=== PATIENT | female | born 1965 | race Caucasian/White ===

== ENCOUNTER 2020-06-16 06:27 | Day surgery (SDC) | payer OTHER ==
[2020-06-16] MEDS ORDERED: Midazolam 1 MG/ML 2 ML SDV IV ONE ×3 (06:28→07:30)
[2020-06-16] MEDS ORDERED: fentaNYL 100 MCG/2 ML SDV IV ONE ×3 (06:28→07:29)
[2020-06-16] MEDS ORDERED: Dextrose 5%-0.45% NaCl 1,000 ML IV SCH (06:55)
[2020-06-16] MEDS ORDERED: fentaNYL 100 MCG/2 ML SDV ONE (07:09)
[2020-06-16] MEDS ORDERED: Midazolam 1 MG/ML 2 ML SDV ONE (07:09)
--- NOTE | 2020-06-16 08:45 | OR ---
DATE: 06/16/2020 PROCEDURE: Esophagogastroduodenoscopy and multiple pinch biopsies. INSTRUMENT USED: [id number]-[id number] Olympus video panendoscope. PREMEDICATIONS: No oral or topical anesthesia used. Fentanyl 100 mcg intravenous, Versed 2 mg intravenous, nasal O2 cannula. The procedure was done under pulse oximetry, BP recording, and gravity prospecting observer helper. INDICATION: The patient with multiple illnesses, on numerous medications, having persistent upper abdominal pain, unexplained, and not responsive to medical measures, on acid suppressant. Esophagogastroduodenoscopy is performed for detection of any active erosive lesions. Weiner esophagus and/or malignancy also under consideration. H pylori status to be determined. Small bowel biopsies to be obtained for any evidence of celiac disease. Endoscopic hemostasis therapy if needed. DESCRIPTION OF PROCEDURE: The scope was passed with ease. Adequate visualization of the esophagus was made from proximal to distal areas. No upper esophageal lesions identified. No distal esophageal stricture. No uphill or downhill esophageal varices. No Hanna-Lew tear. No esophageal polyp or tumor mass identified. No evidence of erosive esophagitis by Lynn criteria. Z-line was seen at around 40 cm distal to the oral verge. Configuration consistent with grade 1 by ZAP classification. No proximal gastric varices noted. Gastric fundus examination by retroflexion showed no polypoid lesions. No gastric ulcer, malignant mass, or vascular ectasia identified. Duodenal bulb showed no ulcer. Visualized second part of the duodenum was unremarkable. Multiple pinch biopsies, 4 in number, were taken from different areas of the second part of the duodenum. Tissues were also obtained from the duodenal bulb at 9 and 12 o'clock positions and sent for any histopathologic evidence of celiac disease. Multiple pinch biopsies were also obtained from the gastric antrum and proximal body and sent for pyloric test for H pylori and histopathology. No bleeding was noted from any of the visualized areas at the completion of examination. Photographs were taken of the duodenal bulb, gastric antrum, fundus, and distal esophagus. IMPRESSION: Normal study. The patient tolerated the procedure well. [facility] /[id number]
[2020-06-16 09:54] VITALS: BP 122/64; PULSE 57
== END 2020-06-16 09:44 | disposition home or self-care (01) ==
LOC: DL.ENDO 06:27
PROVIDERS: ATTEND Internal Medicine Gastroenterology
DX: I78.1 Nevus, non-neoplastic (principal); K31.9 Disease of stomach and duodenum, unspecified; E66.09 Other obesity due to excess calories; I10 Essential (primary) hypertension; E78.5 Hyperlipidemia, unspecified; F41.1 Generalized anxiety disorder; E11.9 Type 2 diabetes mellitus without complications; F32.9 Major depressive disorder, single episode, unspecified; K21.9 Gastro-esophageal reflux disease without esophagitis; K58.9 Irritable bowel syndrome, unspecified; K75.81 Nonalcoholic steatohepatitis (NASH); K74.0 Hepatic fibrosis; Z79.899 Other long term (current) drug therapy; Z68.29 Body mass index [BMI] 29.0-29.9, adult
CPT/HCPCS: 43239; 87077; J2250; J3010; J7042

== ENCOUNTER 2021-01-02 05:35 | Day surgery (SDC) | payer OTHER ==
[~2021-01-02 05:35] MED LIST: Dextrose 5%-0.45% NaCl 1,000 ML IV SCH; Sodium Chloride 0.9% 10 ML Syringe FLUSH PRN
[2021-01-02] MEDS ORDERED: Midazolam 1 MG/ML 2 ML SDV IV ONE ×8 (05:36→06:52)
[2021-01-02] MEDS ORDERED: fentaNYL 100 MCG/2 ML SDV IV ONE ×7 (05:36→06:44)
[2021-01-02] MEDS ORDERED: Midazolam 1 MG/ML 2 ML SDV ONE (05:59)
[2021-01-02] MEDS ORDERED: fentaNYL 100 MCG/2 ML SDV ONE (05:59)
--- NOTE | 2021-01-02 07:27 | OR ---
DATE: 01/02/2021 PROCEDURE: Total colonoscopy. INSTRUMENT USED: [id number]-[id number] Olympus video colonoscope. PREMEDICATIONS: Fentanyl 200 mcg intravenous, Versed 5 mg intravenous. Nasal O2 cannula. The procedure was done under pulse oximetry, BP recording, and monitor car operator. INDICATION: The patient with persistent abdominal pain, unexplained and not responsive to medical measures. Previous inadequate colonoscopy due to the presence of large amount of fecal material. Colonoscopic examination is done for detection of any polypoid lesions and removal, endoscopic hemostasis therapy if needed. DESCRIPTION OF PROCEDURE: Initial rectal exam was unremarkable. Rigid anoscopy showed small internal hemorrhoids without bleeding from them. The colonoscope was passed with relative ease up to the ileocecal area. Photographs were taken of the normal-appearing cecum identified by double-bulged ileocecal folds and appendiceal orifice. No bleeding was noted from any of the visualized areas at the commencement of the examination. The bowel preparation was found to be adequate, [place] scale 2 in all the regions, total score 6. No stricture. No vascular ectasia. No large isolated ulcerations seen. No evidence of diffuse inflammatory bowel disease in the form of friability, contact bleeding, or ulcerations. No polyp or tumor mass identified. Probing the proximal sides of folds and flexures using adequate distention and clearing up the stool material, withdrawal of the scope was made, cecum to rectum time over 6 minutes. No bleeding was noted from any of the visualized areas at the completion of examination. IMPRESSION: Internal hemorrhoids. The patient tolerated the procedure well. [facility] /[id number]
[2021-01-02 11:01] VITALS: BP 128/66; PULSE 58
== END 2021-01-02 09:03 | disposition home or self-care (01) ==
LOC: DL.ENDO 05:35
PROVIDERS: ATTEND Internal Medicine Gastroenterology
DX: K64.8 Other hemorrhoids (principal); K21.9 Gastro-esophageal reflux disease without esophagitis; I10 Essential (primary) hypertension; E78.5 Hyperlipidemia, unspecified; E11.9 Type 2 diabetes mellitus without complications; E66.09 Other obesity due to excess calories; Z68.29 Body mass index [BMI] 29.0-29.9, adult; Z98.890 Other specified postprocedural states
CPT/HCPCS: 45378; J2250; J3010; J7042

== ENCOUNTER 2021-06-20 22:58 | Inpatient (IN) | payer OTHER ==
[2021-06-20] MEDS ORDERED: Metoclopramide 10 MG/2 ML SDV IVPUSH ONE (23:16)
[2021-06-20] MEDS ORDERED: HYDROmorphone 1 MG/ML Syringe IVPUSH ONE (23:17)
--- NOTE | 2021-06-20 23:24 | EDM.PDOC ---
ED HPI GENERAL MEDICAL PROBLEM - General Chief Complaint: Abdominal Pain Stated Complaint: AMBULANCE Time Seen by Provider: 06/20/21 23:18 Source of Information: Reports: Patient, EMS, Old Records, RN, RN Notes Reviewed History Limitations: Reports: No Limitations - History of Present Illness INITIAL COMMENTS - FREE TEXT/NARRATIVE: Marybel is a 55 y/o female with a history of DM II, insulin dependent, who presents to the ED via [facility] with complaints of RUQ pain. The patient reports history of similar episodes over the past several months, and has undergone CT, MRI, EGD, and colonoscopy for evaluation of the pain in the past year. She is s/p cholecystectomy but was noted to have signs of remaining gallbladder on prior CT. She notes her symptoms started at approximately 1500 today with a fever of 101 and nausea; she began to experience vomiting, diarrhea, and RUQ pain at 2000. The patient characterizes her pain as a 6/10, constant ache that radiates into her RLQ. She has taken one dose of Zofran ODT 4mg which offered her no alleviation in symptoms. The patient states she feels weak from one bout of emesis and two bouts of diarrhea. Her last meal was this past evening. Right Upper Abdomen Pain Score (Numeric/FACES): 6 - Related Data Allergies Allergy/AdvReac Type Severity Reaction Status Date / Time glyburide AdvReac Intermediate Confusion Verified 06/20/21 23:08 Home Meds: Home Meds Aspirin [Halfprin] 81 mg PO DAILY 11/01/13 [History] Insulin NPH/Insulin Reg,Human [Novolin 70-30] 25 units SUBCUT BEDTIME 11/01/13 [History] Sertraline HCl 50 mg PO DAILY 11/01/13 [History] metFORMIN [Glucophage] 1,000 mg PO BID 11/01/13 [History] ramipriL [Altace] 15 mg PO DAILY 11/01/13 [History] Cetirizine [ZyrTEC] 10 mg PO DAILY 06/15/20 [History] Cholecalciferol (Vitamin D3) [Vitamin D3] 2,000 units PO DAILY 06/15/20 [History] Dapagliflozin Propanediol [Farxiga] 5 mg PO DAILY 06/15/20 [History] Magnesium Glycinate [Magnesium Bisglycinate Chelate] 200 mg PO DAILY 09/16/20 [History] Ascorbic Acid [Vitamin C] 100 mg PO DAILY 10/20/20 [History] Insuln Asp Prot/Insulin Aspart [NovoLOG Mix 70-30] 40 - 45 units SQ BID 10/20/20 [History] Rosuvastatin Calcium 20 mg PO BEDTIME 10/20/20 [History] Famotidine 20 mg PO BID 06/20/21 [History] Ondansetron [Zofran ODT] 4 mg PO Q12H PRN 06/20/21 [History] Past Medical History HEENT History: Reports: Impaired Vision, Other (See Below) Other HEENT History: WEARS GLASSES Cardiovascular History: Reports: High Cholesterol, Hypertension Respiratory History: Reports: None Gastrointestinal History: Reports: Colon Polyp, GERD, Irritable Bowel Syndrome, Other (See Below) Other Gastrointestinal History: NONALCOHOLIC STEATOHEPATITIS WITH FIBROSIS. ABDOMINAL ADHESIONS Genitourinary History: Reports: None QUILL CLEANER History: Reports: Other (See Below) Other QUILL CLEANER History: Hysterectomy Musculoskeletal History: Reports: Arthritis, Back Pain, Chronic, Osteoporosis, Other (See Below) Other Musculoskeletal History: right shoulder Neurological History: Reports: None Psychiatric History: Reports: Anxiety, Depression Endocrine/Metabolic History: Reports: Diabetes, Type II, Obesity/BMI 30+, Osteoporosis, Vitamin D Deficiency Hematologic History: Reports: Blood Transfusion(s) Immunologic History: Reports: None Oncologic (Cancer) History: Reports: None Dermatologic History: Reports: Other (See Below) Other Dermatologic History: HX OF ACTINIC DERMATITIS - Infectious Disease History Infectious Disease History: Reports: Chicken Pox, Hepatitis non A,B,C, Measles, Mumps - Past Surgical History Head Surgeries/Procedures: Reports: None HEENT Surgical History: Reports: Naso-Sinus Surgery, Oral Surgery, Tonsillectomy Cardiovascular Surgical History: Reports: None Respiratory Surgical History: Reports: None GI Surgical History: Reports: Cholecystectomy, Colonoscopy, EGD, Polypectomy Other GI Surgeries/Procedures: Hx of colon polyp. Female Surgical History: Reports: Hysterectomy, Salpingo-Oophorectomy, Tubal Ligation Endocrine Surgical History: Reports: None Neurological Surgical History: Reports: None Musculoskeletal Surgical History: Reports: Other (See Below) Other Musculoskeletal Surgeries/Procedures:: LEFT ELBOW SURGERY, MOVED TENDON Oncologic Surgical History: Reports: None Dermatological Surgical History: Reports: None Social & Family History - Family History Family Medical History: No Pertinent Family History - Tobacco Use Tobacco Use Status *Q: Never Tobacco User - Caffeine Use Caffeine Use: Reports: Coffee, Soda, Tea Other Caffeine Use: COFFEE 12OZ DAILY. TEA 30-40 OZ - Recreational Drug Use Recreational Drug Use: No - Living Situation & Occupation Living situation: Reports: Occupation: Employed ED ROS GENERAL - Review of Systems Review Of Systems: Comprehensive ROS is negative, except as noted in HPI. ED EXAM, GI/ABD - Physical Exam Exam: See Below Exam Limited By: No Limitations General Appearance: Alert, Mild Distress (Pain to RUQ), Obese. No: Active Emesis Eyes: Bilateral: Normal Appearance, EOMI Ears: Normal External Exam, Hearing Grossly Normal Nose: Normal Inspection, Normal Mucosa, No Blood Throat/Mouth: Normal Inspection, Normal Oropharynx, Normal Voice, No Airway Compromise Head: Atraumatic, Normocephalic Neck: Normal Inspection, Supple, Non-Tender, Full Range of Motion Respiratory/Chest: No Respiratory Distress, Lungs Clear, Normal Breath Sounds, No Accessory Muscle Use, Chest Non-Tender Cardiovascular: Normal Peripheral Pulses, Regular Rate, Rhythm, No Edema, No Gallop, No JVD, No Murmur, No Rub GI/Abdominal Exam: Soft, No Distention, No Abnormal Bruit, No Mass, Pelvis Stable, Tender (To palpation of RUQ and RLQ), Abnormal Bowel Sounds (Hyperactive bowel sounds x4) (Female) Exam: Deferred Rectal (Female) Exam: Deferred Back Exam: Normal Inspection, Full Range of Motion Extremities: Normal Inspection, Normal Range of Motion, Non-Tender, No Pedal Edema, Normal Capillary Refill Neurological: Alert, Oriented, CN II-XII Intact, Normal Cognition, Normal Gait, No Motor/Sensory Deficits Psychiatric: Normal Affect, Normal Mood Skin Exam: Warm, Dry, Intact, Normal Color, No Rash. No: Cyanosis, Jaundice, Mottled, Pallor Course - Vital Signs Last Recorded V/S: Last Vital Signs Temp 97.1 F 06/20/21 23:10 Pulse 63 06/20/21 23:10 Resp 20 06/20/21 23:10 BP 135/71 06/20/21 23:10 Pulse Ox 95 06/20/21 23:10 - Orders/Labs/Meds Orders: Active Orders 24 hr Category Date Time Status Gastrointestinal Tube Mgmt [RC] Q8H Care 06/21/21 01:48 Active NG [Nasogastric Orogastric Tube Insertion] [OM.PC] Oth 06/21/21 01:48 Ordered Routine Medication Orders Acetaminophen (Acetaminophen 325 Mg Tab) 650 mg PO Q4H PRN PRN Reason: Pain (Mild 1-3)/fever Dextrose/Water (50% Dextrose In Water 50 Ml Syringe) 50 ml IVPUSH Q15M PRN PRN Reason: Hypoglycemia Enoxaparin Sodium (Enoxaparin 40 Mg/0.4 Ml Syringe) 40 mg SUBCUT DAILY ABHAY Glucagon (Glucagon,Human Recombinant 1 Mg Vial) 1 mg IM Q15M PRN PRN Reason: Hypoglycemia Sodium Chloride (Normal Saline) 1,000 mls @ 100 mls/hr IV ASDIRECTED ABHAY Insulin Human Lispro (Insulin Lispro 100 Units/Ml 3 Ml Vial) 0 unit SUBCUT Q6H ABHAY; Protocol Morphine Sulfate (Morphine 2 Mg/Ml Syringe) 1 mg IVPUSH Q4H PRN PRN Reason: Pain (severe 7-10) Ondansetron HCl (Ondansetron 4 Mg/2 Ml Sdv) 4 mg IVPUSH Q4H PRN PRN Reason: Nausea/Vomiting Senna/Docusate Sodium (Docusate Sodium/Sennosides 50-8.6 Mg Tab) 2 tab PO BID ABHAY Sodium Chloride (Sodium Chloride 0.9% 10 Ml Syringe) 10 ml FLUSH ASDIRECTED PRN PRN Reason: Keep Vein Open Labs: Laboratory Tests 06/20/21 06/20/21 06/20/21 Range/Units 23:18 23:18 23:18 WBC 13.1 H (5.0-10.0) 10^3/uL RBC 4.98 (4.2-5.4) 10^6/uL Hgb 15.0 D (12.0-16.0) g/dL Hct 43.9 (37.0-47.0) % MCV 88.2 (80-100) fL MCH 30.1 (27.0-34.0) pg MCHC 34.2 (33.0-35.0) g/dL Plt Count 255 (150-450) 10^3/uL Neut % (Auto) 68.0 (42.2-75.2) % Lymph % (Auto) 21.5 (20.5-50.1) % [place] % (Auto) 9.4 H (2-8) % Eos % (Auto) 0.9 L (1.0-3.0) % Baso % (Auto) 0.2 (0.0-1.0) % Sodium 137 (136-145) mmol/L Potassium 3.7 (3.5-5.1) mmol/L Chloride 100 (98-107) mmol/L Carbon Dioxide 21 (21-32) mmol/L Anion Gap 19.7 H (7-13) mEq/L BUN 13 (7-18) mg/dL Creatinine 0.83 (0.55-1.02) mg/dL Est Cr Clr Drug Dosing 73.60 mL/min Estimated GFR (MDRD) > 60 BUN/Creatinine Ratio 15.7 (No establ ref range) Glucose 216 H (70-99) mg/dL Lactic Acid 4.8 H* (0.4-2.0) mmol/L Calcium 9.4 (8.5-10.1) mg/dL Magnesium 1.8 (1.8-2.4) mg/dL Total Bilirubin 0.4 (0.2-1.0) mg/dL AST 52 H (15-37) U/L ALT 74 H (14-59) U/L Alkaline Phosphatase 78 (46-116) U/L C-Reactive Protein < 0.2 (0.0-0.9) mg/dL Total Protein 7.3 (6.4-8.2) g/dL Albumin 3.9 (3.4-5.0) g/dL Globulin 3.4 Albumin/Globulin Ratio 1.1 Amylase 26 (25-115) U/L Lipase 125 (73-393) U/L Urine Color (YELLOW) Urine Appearance (CLEAR) Urine pH (5.0-9.0) Ur Specific [place] (1.005-1.030) Urine Protein (NEGATIVE) Urine Glucose (UA) (NEGATIVE) Urine Ketones (NEGATIVE) Urine Occult Blood (NEGATIVE) Urine Nitrite (NEGATIVE) Urine Bilirubin (NEGATIVE) Urine Urobilinogen (0.2-1.0) mg/dL Ur Leukocyte Esterase (NEGATIVE) Urine Opiates Screen (NEGATIVE) Ur Oxycodone Screen (NEGATIVE) Urine Methadone Screen (NEGATIVE) Ur Barbiturates Screen (NEGATIVE) U Tricyclic Antidepress (NEGATIVE) Ur Phencyclidine Scrn (NEGATIVE) Ur Amphetamine Screen (NEGATIVE) U Methamphetamines Scrn (NEGATIVE) Urine MDMA Screen (NEGATIVE) U Benzodiazepines Scrn (NEGATIVE) Urine Cocaine Screen (NEGATIVE) U Marijuana (THC) Screen (NEGATIVE) Ethyl Alcohol < 3 (0) mg/dL Ketones 06/20/21 06/21/21 06/21/21 Range/Units 23:18 00:10 00:10 WBC (5.0-10.0) 10^3/uL RBC (4.2-5.4) 10^6/uL Hgb (12.0-16.0) g/dL Hct (37.0-47.0) % MCV (80-100) fL MCH (27.0-34.0) pg MCHC (33.0-35.0) g/dL Plt Count (150-450) 10^3/uL Neut % (Auto) (42.2-75.2) % Lymph % (Auto) (20.5-50.1) % [place] % (Auto) (2-8) % Eos % (Auto) (1.0-3.0) % Baso % (Auto) (0.0-1.0) % Sodium (136-145) mmol/L Potassium (3.5-5.1) mmol/L Chloride (98-107) mmol/L Carbon Dioxide (21-32) mmol/L Anion Gap (7-13) mEq/L BUN (7-18) mg/dL Creatinine (0.55-1.02) mg/dL Est Cr Clr Drug Dosing mL/min Estimated GFR (MDRD) BUN/Creatinine Ratio (No establ ref range) Glucose (70-99) mg/dL Lactic Acid (0.4-2.0) mmol/L Calcium (8.5-10.1) mg/dL Magnesium (1.8-2.4) mg/dL Total Bilirubin (0.2-1.0) mg/dL AST (15-37) U/L ALT (14-59) U/L Alkaline Phosphatase (46-116) U/L C-Reactive Protein (0.0-0.9) mg/dL Total Protein (6.4-8.2) g/dL Albumin (3.4-5.0) g/dL Globulin Albumin/Globulin Ratio Amylase (25-115) U/L Lipase (73-393) U/L Urine Color Yellow (YELLOW) Urine Appearance Clear (CLEAR) Urine pH 6.0 (5.0-9.0) Ur Specific [place] 1.015 (1.005-1.030) Urine Protein Negative (NEGATIVE) Urine Glucose (UA) >=1000 H (NEGATIVE) Urine Ketones Trace H (NEGATIVE) Urine Occult Blood Negative (NEGATIVE) Urine Nitrite Negative (NEGATIVE) Urine Bilirubin Negative (NEGATIVE) Urine Urobilinogen 0.2 (0.2-1.0) mg/dL Ur Leukocyte Esterase Negative (NEGATIVE) Urine Opiates Screen Positive H (NEGATIVE) Ur Oxycodone Screen Negative (NEGATIVE) Urine Methadone Screen Negative (NEGATIVE) Ur Barbiturates Screen Negative (NEGATIVE) U Tricyclic Antidepress Negative (NEGATIVE) Ur Phencyclidine Scrn Negative (NEGATIVE) Ur Amphetamine Screen Negative (NEGATIVE) U Methamphetamines Scrn Negative (NEGATIVE) Urine MDMA Screen Negative (NEGATIVE) U Benzodiazepines Scrn Negative (NEGATIVE) Urine Cocaine Screen Negative (NEGATIVE) U Marijuana (THC) Screen Negative (NEGATIVE) Ethyl Alcohol (0) mg/dL Ketones Negative 06/21/21 Range/Units 02:29 WBC (5.0-10.0) 10^3/uL RBC (4.2-5.4) 10^6/uL Hgb (12.0-16.0) g/dL Hct (37.0-47.0) % MCV (80-100) fL MCH (27.0-34.0) pg MCHC (33.0-35.0) g/dL Plt Count (150-450) 10^3/uL Neut % (Auto) (42.2-75.2) % Lymph % (Auto) (20.5-50.1) % [place] % (Auto) (2-8) % Eos % (Auto) (1.0-3.0) % Baso % (Auto) (0.0-1.0) % Sodium (136-145) mmol/L Potassium (3.5-5.1) mmol/L Chloride (98-107) mmol/L Carbon Dioxide (21-32) mmol/L Anion Gap (7-13) mEq/L BUN (7-18) mg/dL Creatinine (0.55-1.02) mg/dL Est Cr Clr Drug Dosing mL/min Estimated GFR (MDRD) BUN/Creatinine Ratio (No establ ref range) Glucose (70-99) mg/dL Lactic Acid 3.0 H* (0.4-2.0) mmol/L Calcium (8.5-10.1) mg/dL Magnesium (1.8-2.4) mg/dL Total Bilirubin (0.2-1.0) mg/dL AST (15-37) U/L ALT (14-59) U/L Alkaline Phosphatase (46-116) U/L C-Reactive Protein (0.0-0.9) mg/dL Total Protein (6.4-8.2) g/dL Albumin (3.4-5.0) g/dL Globulin Albumin/Globulin Ratio Amylase (25-115) U/L Lipase (73-393) U/L Urine Color (YELLOW) Urine Appearance (CLEAR) Urine pH (5.0-9.0) Ur Specific [place] (1.005-1.030) Urine Protein (NEGATIVE) Urine Glucose (UA) (NEGATIVE) Urine Ketones (NEGATIVE) Urine Occult Blood (NEGATIVE) Urine Nitrite (NEGATIVE) Urine Bilirubin (NEGATIVE) Urine Urobilinogen (0.2-1.0) mg/dL Ur Leukocyte Esterase (NEGATIVE) Urine Opiates Screen (NEGATIVE) Ur Oxycodone Screen (NEGATIVE) Urine Methadone Screen (NEGATIVE) Ur Barbiturates Screen (NEGATIVE) U Tricyclic Antidepress (NEGATIVE) Ur Phencyclidine Scrn (NEGATIVE) Ur Amphetamine Screen (NEGATIVE) U Methamphetamines Scrn (NEGATIVE) Urine MDMA Screen (NEGATIVE) U Benzodiazepines Scrn (NEGATIVE) Urine Cocaine Screen (NEGATIVE) U Marijuana (THC) Screen (NEGATIVE) Ethyl Alcohol (0) mg/dL Ketones Meds: Medications Generic Name Dose Route Start Last Admin Trade Name Freq PRN Reason Stop Dose Admin Acetaminophen 650 mg 06/21/21 03:10 Acetaminophen 325 Mg Tab PO Q4H PRN Pain (Mild 1-3)/fever Dextrose/Water 50 ml 06/21/21 03:14 50% Dextrose In Water 50 Ml Syringe IVPUSH Q15M PRN Hypoglycemia Enoxaparin Sodium 40 mg 06/21/21 09:00 Enoxaparin 40 Mg/0.4 Ml Syringe SUBCUT DAILY ABHAY Glucagon 1 mg 06/21/21 03:14 Glucagon,Human Recombinant 1 Mg Vial IM Q15M PRN Hypoglycemia Sodium Chloride 1,000 mls @ 100 mls/hr 06/21/21 03:15 Normal Saline IV ASDIRECTED [facility] Insulin Human Lispro 0 unit 06/21/21 03:15 Insulin Lispro 100 Units/Ml 3 Ml Vial SUBCUT Q6H [facility] Protocol Morphine Sulfate 1 mg 06/21/21 03:10 Morphine 2 Mg/Ml Syringe IVPUSH Q4H PRN Pain (severe 7-10) Ondansetron HCl 4 mg 06/21/21 03:10 Ondansetron 4 Mg/2 Ml Sdv IVPUSH Q4H PRN Nausea/Vomiting Senna/Docusate Sodium 2 tab 06/21/21 09:00 Docusate Sodium/Sennosides 50-8.6 Mg Tab PO BID ABHAY Sodium Chloride 10 ml 06/21/21 03:10 Sodium Chloride 0.9% 10 Ml Syringe FLUSH ASDIRECTED PRN Keep Vein Open Discontinued Medications Generic Name Dose Route Start Last Admin Trade Name Freq PRN Reason Stop Dose Admin Acetaminophen 1,000 mg 06/21/21 01:01 06/21/21 01:21 Acetaminophen 500 Mg Tab PO 06/21/21 01:02 1,000 mg ONETIME ONE Administration Hydromorphone HCl 1 mg 06/20/21 23:17 06/20/21 23:27 Hydromorphone 1 Mg/Ml Syringe IVPUSH 06/20/21 23:18 1 mg ONETIME ONE Administration Sodium Chloride 1,000 mls @ 999 mls/hr 06/21/21 00:43 06/21/21 00:47 Normal Saline IV 06/21/21 01:43 999 mls/hr .BOLUS ONE Administration Iopamidol 100 ml 06/20/21 23:50 06/21/21 00:02 Iopamidol 612 Mg/Ml 100 Ml Bottle IVPUSH 06/20/21 23:51 100 ml ONETIME ONE Administration Metoclopramide HCl 10 mg 06/20/21 23:16 06/20/21 23:27 Metoclopramide 10 Mg/2 Ml Sdv IVPUSH 06/20/21 23:17 10 mg ONETIME ONE Administration - Radiology Interpretation Free Text/Narrative:: [facility] Final Radiology Report Call: [phone] assistance Online chat: [email or web address] Name: MARYBEL REYNAGA Age: 55Years F Date: 06/20/2021 SSN: -- : [id number] Study: CT ABDOMEN PELVIS W CONT Requesting Physician: Juli Bernal Images: [id number] Addl Studies: Provided Clinical History: RUQ pain; WBC 13 Contrast: With Contrast Medium: isovue 300 Contrast Amount: 100 mL Contrast Method: Intravenous (IV) Page 1 of 2 PROCEDURE INFORMATION: Exam: CT Abdomen And Pelvis With Contrast Exam date and time: 06/20/2021 11:51 PM Age: 55 years old Clinical indication: Right upper quadrant abdominal pain. Total hysterectomy, partial gallbladder removal, diabetes. TECHNIQUE: Imaging protocol: Computed tomography of the abdomen and pelvis with contrast. Radiation optimization: All CT scans at this facility use at least one of these dose optimization techniques: automated exposure control; mA and/or kV adjustment per patient size (includes targeted exams where dose is matched to clinical indication); or iterative reconstruction. Contrast material: ISOVUE 300; Contrast volume: 100 ml; Contrast route: INTRAVENOUS (IV); COMPARISON: CT Abdomen/Pelvis 02/28/2021 4:04 PM FINDINGS: Lung bases are clear. This the liver remains mildly enlarged and may be fatty infiltrated. Solid abdominal organs are otherwise unremarkable. The gallbladder is nondistended. No radiopaque gallstones or biliary ductal dilatation. A surgical clip is present immediately adjacent to the gallbladder. The stomach is mildly distended with gas, debris, and fluid. A few mildly distended loops of small bowel are present with scattered air-fluid levels present. No abrupt change in small bowel caliber is identified. Liquefied stool is present in the colon which is largely collapsed beyond the level of the splenic flexure. Bowel is otherwise unremarkable. Normal appendix is identified. Mild abdominal aortic atherosclerotic calcification. No abdominal aortic aneurysm or dissection. Few stable periportal lymph nodes are present which measure up to 10 mm diameter. Post hysterectomy. No adnexal mass. The urinary bladder is fluid filled and unremarkable. No free intraperitoneal air or fluid. Osseous structures are intact. Mild degenerative changes involve the spine. IMPRESSION: 1. Mildly distended stomach and few loops of small bowel without suspicion for mechanical obstruction. Question mild ileus. 2. Liquefied colonic stool suggesting diarrheal disease. 3. Mildly enlarged possibly fatty infiltrated liver. Thank you for allowing us to participate in the care of your patient. Dictated and Authenticated by: Avinash Christensen MD 06/21/2021 1:36 AM Central Time ([place] & [place]) - Re-Assessments/Exams Free Text/Narrative Re-Assessment/Exam: 06/21/21 LR 1L bolus continued from EMS. Dilaudid 1mg IVP and Reglan 10mg IVP administered. Patient verbalizes improvement in abdominal pain, but continues to experience nausea. CT abdomen/pelvis obtained. Findings of examination, lab work, and imaging reviewed with patient and . Patient states her pain is much improved, but her nausea and bloating feel worse. Will place NG tube, given possible ileus w/o obstruction via CT. Case discussed with Dr. Noel who kindly accepted patient for referral to observation. Plan of care reviewed with patient and who verbalized understanding and agreement. Departure - Departure Time of Disposition: 02:35 Disposition: Admitted As Inpatient 65 Condition: Fair Clinical Impression: Ileus, Dehydration Hyperglycemia due to type 2 diabetes mellitus Qualifiers: Diabetes mellitus correction insulin use: with watermelon inspector use Qualified Code(s): E11.65 - Type 2 diabetes mellitus with hyperglycemia; Z79.4 - shelter (current) use of insulin Nausea and vomiting Qualifiers: Vomiting type: bilious vomiting Qualified Code(s): R11.14 - Bilious vomiting Diarrhea Qualifiers: Diarrhea type: unspecified type Qualified Code(s): R19.7 - Diarrhea, unspecified - Discharge Information Sepsis Event Note (ED) - Evaluation Sepsis Screening Result: No Definite Risk - Focused Exam Vital Signs: Vital Signs Temp Pulse Resp BP Pulse Ox 06/20/21 23:10 97.1 F 63 20 135/71 95 - My Orders Last 24 Hours: My Active Orders 06/21/21 01:48 Gastrointestinal Tube Mgmt [RC] Q8H NG [Nasogastric Orogastric Tube Insertion] [OM.PC] Routine - Assessment/Plan Last 24 Hours: My Active Orders 06/21/21 01:48 Gastrointestinal Tube Mgmt [RC] Q8H NG [Nasogastric Orogastric Tube Insertion] [OM.PC] Routine
[2021-06-20 23:42] LABS: ANION GAP 19.7 mEq/L (7-13); CHLORIDE,CL 100 mmol/L (98-107); SODIUM,NA 137 mmol/L (136-145)
[2021-06-20] MEDS ORDERED: Iopamidol 612 MG/ML 100 ML Bottle IVPUSH ONE (23:50)
[2021-06-21 00:29] LABS: AMPHETAMINES,URINE NEGATIVE (NEGATIVE); BARBITURATES,URINE NEGATIVE (NEGATIVE); BENZODIAZEPINE,URINE NEGATIVE (NEGATIVE); MDMA (ECSTASY), URINE NEGATIVE (NEGATIVE); METHADONE,URINE NEGATIVE (NEGATIVE); METHAMPHETAMINES,URINE NEGATIVE (NEGATIVE); OPIATES,URINE POSITIVE (NEGATIVE); OXYCODONE,URINE NEGATIVE (NEGATIVE); PHENCYCLIDINE,URINE NEGATIVE (NEGATIVE); TCA,URINE NEGATIVE (NEGATIVE)
[2021-06-21] MEDS ORDERED: Sodium Chloride 0.9% 1,000 ML IV ONE (00:43)
[2021-06-21] MEDS ORDERED: Acetaminophen 500 MG Tab PO ONE (01:01)
--- NOTE | 2021-06-21 01:36 | CT ---
PROCEDURE INFORMATION: Exam: CT Abdomen And Pelvis With Contrast Exam date and time: 06/20/2021 11:51 PM Age: 55 years old Clinical indication: Right upper quadrant abdominal pain. Total hysterectomy, partial gallbladder removal, diabetes. TECHNIQUE: Imaging protocol: Computed tomography of the abdomen and pelvis with contrast. Radiation optimization: All CT scans at this facility use at least one of these dose optimization techniques: automated exposure control; mA and/or kV adjustment per patient size (includes targeted exams where dose is matched to clinical indication); or iterative reconstruction. Contrast material: ISOVUE 300; Contrast volume: 100 ml; Contrast route: INTRAVENOUS (IV); COMPARISON: CT Abdomen/Pelvis 02/28/2021 4:04 PM FINDINGS: Lung bases are clear. This the liver remains mildly enlarged and may be fatty infiltrated. Solid abdominal organs are otherwise unremarkable. The gallbladder is nondistended. No radiopaque gallstones or biliary ductal dilatation. A surgical clip is present immediately adjacent to the gallbladder. The stomach is mildly distended with gas, debris, and fluid. A few mildly distended loops of small bowel are present with scattered air-fluid levels present. No abrupt change in small bowel caliber is identified. Liquefied stool is present in the colon which is largely collapsed beyond the level of the splenic flexure. Bowel is otherwise unremarkable. Normal appendix is identified. Mild abdominal aortic atherosclerotic calcification. No abdominal aortic aneurysm or dissection. Few stable periportal lymph nodes are present which measure up to 10 mm diameter. Post hysterectomy. No adnexal mass. The urinary bladder is fluid filled and unremarkable. No free intraperitoneal air or fluid. Osseous structures are intact. Mild degenerative changes involve the spine. IMPRESSION: 1. Mildly distended stomach and few loops of small bowel without suspicion for mechanical obstruction. Question mild ileus. 2. Liquefied colonic stool suggesting diarrheal disease. 3. Mildly enlarged possibly fatty infiltrated liver.
[2021-06-21] MEDS ORDERED: Benzocaine/Cetylpyridinium/Menthol Lozenge MUCMEM ONE (02:34)
--- NOTE | 2021-06-21 03:00 | CR ---
PROCEDURE INFORMATION: Exam: XR Abdomen Exam date and time: 06/21/2021 2:51 AM Age: 55 years old Clinical indication: Other: Confirm ng/og tube placement TECHNIQUE: Imaging protocol: XR of the abdomen. Views: Frontal supine view of the abdomen. 1 View. COMPARISON: CT Abdomen/Pelvis 06/20/2021 11:51 PM FINDINGS: Naso/orogastric tube is present with tip just below the expected level of the gastroesophageal junction. Visualized bowel gas pattern is within normal limits. Excreted urinary contrast from previous intravenous contrast load is present in the renal collecting systems. IMPRESSION: Naso/orogastric tube in place with tip just below the expected level of the gastroesophageal junction. This could be advanced further into the body of the stomach for optimal placement.
[2021-06-21] MEDS ORDERED: Sodium Chloride 0.9% 10 ML Syringe FLUSH PRN (03:10)
[2021-06-21] MEDS ORDERED: Glucagon,Human Recombinant 1 MG Vial IM PRN (03:14)
[2021-06-21] MEDS ORDERED: 50% Dextrose in Water 50 ML Syringe IVPUSH PRN (03:14)
--- NOTE | 2021-06-21 03:21 | PCM.HP ---
H&P History of Present Illness - General Date of Service: 06/21/21 Admit Problem/Dx: Admission Diagnosis/Problem Admission Diagnosis/Problem Ileus - History of Present Illness Initial Comments - Free Text/Narative: The patient is a 55-year-old female who presents with chief complaint of abdominal pain. She states she started feeling unwell at approximately 3 PM on June 20, 2021. She states at that time she was exhibiting eructations. She states she developed right-sided abdominal pain described as pressure which rated 7 out of 10 at its worst at the time of interview it rates 2 out of 10. She Franck that her last bowel movement was shortly prior before presenting to the emergency department. She indicates that she is been having diarrhea however she denies melena, hematochezia, steatorrhea. She states that she took Tylenol at home for the pain which improved the pain mildly. She states that she has not taken antibiotics in the last 6 months and she denies frequent NSAID use. She admits to onset of rigors, nausea and a couple episodes of emesis. She denies fever, cough, wheeze, or any other constitutional complaints. She presents for further evaluation Right Upper Abdomen Pain Score (Numeric/FACES): 6 - Related Data Allergies/Adverse Reactions: Allergies Allergy/AdvReac Type Severity Reaction Status Date / Time glyburide AdvReac Intermediate Confusion Verified 06/20/21 23:08 Home Medications: Home Meds Aspirin [Halfprin] 81 mg PO DAILY 11/01/13 [History] Insulin NPH/Insulin Reg,Human [Novolin 70-30] 25 units SUBCUT BEDTIME 11/01/13 [History] Sertraline HCl 50 mg PO DAILY 11/01/13 [History] metFORMIN [Glucophage] 1,000 mg PO BID 11/01/13 [History] ramipriL [Altace] 15 mg PO DAILY 11/01/13 [History] Cetirizine [ZyrTEC] 10 mg PO DAILY 06/15/20 [History] Cholecalciferol (Vitamin D3) [Vitamin D3] 2,000 units PO DAILY 06/15/20 [History] Dapagliflozin Propanediol [Farxiga] 5 mg PO DAILY 06/15/20 [History] Magnesium Glycinate [Magnesium Bisglycinate Chelate] 200 mg PO DAILY 09/16/20 [History] Ascorbic Acid [Vitamin C] 100 mg PO DAILY 10/20/20 [History] Insuln Asp Prot/Insulin Aspart [NovoLOG Mix 70-30] 40 - 45 units SQ BID 10/20/20 [History] Rosuvastatin Calcium 20 mg PO BEDTIME 10/20/20 [History] Famotidine 20 mg PO BID 06/20/21 [History] Ondansetron [Zofran ODT] 4 mg PO Q12H PRN 06/20/21 [History] Past Medical History HEENT History: Reports: Impaired Vision, Other (See Below) Other HEENT History: WEARS GLASSES Cardiovascular History: Reports: High Cholesterol, Hypertension Respiratory History: Reports: None Gastrointestinal History: Reports: Colon Polyp, GERD, Irritable Bowel Syndrome, Other (See Below) Other Gastrointestinal History: NONALCOHOLIC STEATOHEPATITIS WITH FIBROSIS. 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: Other (See Below) Other OB/BYN History: Hysterectomy Musculoskeletal History: Reports: Arthritis, Back Pain, Chronic, Osteoporosis, Other (See Below) Other Musculoskeletal History: right shoulder Neurological History: Reports: None Psychiatric History: Reports: Anxiety, Depression Endocrine/Metabolic History: Reports: Diabetes, Type II, Obesity/BMI 30+, Osteoporosis, Vitamin D Deficiency Hematologic History: Reports: Blood Transfusion(s) Immunologic History: Reports: None Oncologic (Cancer) History: Reports: None Dermatologic History: Reports: Other (See Below) Other Dermatologic History: HX OF ACTINIC DERMATITIS - Infectious Disease History Infectious Disease History: Reports: Chicken Pox, Hepatitis non A,B,C, Measles, Mumps - Past Surgical History Head Surgeries/Procedures: Reports: None HEENT Surgical History: Reports: Naso-Sinus Surgery, Oral Surgery, Tonsillectomy Cardiovascular Surgical History: Reports: None Respiratory Surgical History: Reports: None GI Surgical History: Reports: Cholecystectomy, Colonoscopy, EGD, Polypectomy Other GI Surgeries/Procedures: Hx of colon polyp. Female Surgical History: Reports: Hysterectomy, Salpingo-Oophorectomy, Tubal Ligation Endocrine Surgical History: Reports: None Neurological Surgical History: Reports: None Musculoskeletal Surgical History: Reports: Other (See Below) Other Musculoskeletal Surgeries/Procedures:: LEFT ELBOW SURGERY, MOVED TENDON Oncologic Surgical History: Reports: None Dermatological Surgical History: Reports: None Social & Family History - Family History Family Medical History: No Pertinent Family History - Tobacco Use Tobacco Use Status *Q: Never Tobacco User - Caffeine Use Caffeine Use: Reports: Coffee, Soda, Tea Other Caffeine Use: COFFEE 12OZ DAILY. TEA 30-40 OZ - Recreational Drug Use Recreational Drug Use: No - Living Situation & Occupation Living situation: Reports: Occupation: Employed H&P Review of Systems - Review of Systems: Review Of Systems: See Below General: Reports: No Symptoms HEENT: Reports: No Symptoms Pulmonary: Reports: No Symptoms Cardiovascular: Reports: No Symptoms Gastrointestinal: Reports: Abdominal Pain, Diarrhea, Nausea, Vomiting Genitourinary: Reports: No Symptoms Musculoskeletal: Reports: No Symptoms Skin: Reports: No Symptoms Psychiatric: Reports: No Symptoms Neurological: Reports: No Symptoms Hematologic/Lymphatic: Reports: No Symptoms Exam - Exam Exam: See Below - Vital Signs Vital Signs: Last Vital Signs Temp 97.1 F 06/20/21 23:10 Pulse 63 06/20/21 23:10 Resp 20 06/20/21 23:10 BP 135/71 06/20/21 23:10 Pulse Ox 95 06/20/21 23:10 Weight: 191 lb 11.2 oz - Exam General: Alert, Oriented, 4 HEENT: PERRLA, Hearing Intact, Mucosa Moist & [place], Nares Patent, Normal Nasal Septum, Posterior Pharynx Clear, Conjunctiva Clear, EOMI, EACs Clear, TMs Clear Neck: Supple, Trachea Midline, 2 Lungs: Clear to Auscultation, Normal Respiratory Effort Cardiovascular: Regular Rate, Regular Rhythm GI/Abdominal Exam: No Organomegaly, No Distention, No Abnormal Bruit, No Mass, Tender Back Exam: Normal Inspection, Full Range of Motion, NT Extremities: Normal Inspection, Normal Range of Motion, Non-Tender, No Pedal Edema, Normal Capillary Refill Peripheral Pulses: 2+: Carotid (L), Carotid (R), Brachial (L), Brachial (R), Radial (L), Radial (R), Femoral (L), Femoral (R), Popliteal (L), Popliteal (R), Posterior Tibial (L), Posterior Tibial (R), Dorsalis Pedis (L), Dorsalis Pedis (R) Skin: Warm, Dry, Intact Neurological: Cranial Nerves Intact, Reflexes Equal Bilateral Neuro Extensive - Mental Status: Alert, Oriented x3, Normal Mood/Affect, Normal Cognition Neuro Extensive - Motor, Sensory, Reflexes: CN II-XII Intact, Normal Gait, Normal Reflexes DTR: 2+: Bicep (L), Bicep (R), Tricep (L), Tricep (R), Patella (L), Patella (R), Achilles (L), Achilles (R) Psychiatric: Alert, Normal Affect, Normal Mood - Patient Data Lab Results Last 24 hrs: Laboratory Results - last 24 hr 06/20/21 06/20/21 06/20/21 Range/Units 23:18 23:18 23:18 WBC 13.1 H (5.0-10.0) 10^3/uL RBC 4.98 (4.2-5.4) 10^6/uL Hgb 15.0 D (12.0-16.0) g/dL Hct 43.9 (37.0-47.0) % MCV 88.2 (80-100) fL MCH 30.1 (27.0-34.0) pg MCHC 34.2 (33.0-35.0) g/dL Plt Count 255 (150-450) 10^3/uL Neut % (Auto) 68.0 (42.2-75.2) % Lymph % (Auto) 21.5 (20.5-50.1) % Clark % (Auto) 9.4 H (2-8) % Eos % (Auto) 0.9 L (1.0-3.0) % Baso % (Auto) 0.2 (0.0-1.0) % Sodium 137 (136-145) mmol/L Potassium 3.7 (3.5-5.1) mmol/L Chloride 100 (98-107) mmol/L Carbon Dioxide 21 (21-32) mmol/L Anion Gap 19.7 H (7-13) mEq/L BUN 13 (7-18) mg/dL Creatinine 0.83 (0.55-1.02) mg/dL Est Cr Clr Drug Dosing 73.60 mL/min Estimated GFR (MDRD) > 60 BUN/Creatinine Ratio 15.7 (No establ ref range) Glucose 216 H (70-99) mg/dL Lactic Acid 4.8 H* (0.4-2.0) mmol/L Calcium 9.4 (8.5-10.1) mg/dL Magnesium 1.8 (1.8-2.4) mg/dL Total Bilirubin 0.4 (0.2-1.0) mg/dL AST 52 H (15-37) U/L ALT 74 H (14-59) U/L Alkaline Phosphatase 78 (46-116) U/L C-Reactive Protein < 0.2 (0.0-0.9) mg/dL Total Protein 7.3 (6.4-8.2) g/dL Albumin 3.9 (3.4-5.0) g/dL Globulin 3.4 Albumin/Globulin Ratio 1.1 Amylase 26 (25-115) U/L Lipase 125 (73-393) U/L Urine Color (YELLOW) Urine Appearance (CLEAR) Urine pH (5.0-9.0) Ur Specific [place] (1.005-1.030) Urine Protein (NEGATIVE) Urine Glucose (UA) (NEGATIVE) Urine Ketones (NEGATIVE) Urine Occult Blood (NEGATIVE) Urine Nitrite (NEGATIVE) Urine Bilirubin (NEGATIVE) Urine Urobilinogen (0.2-1.0) mg/dL Ur Leukocyte Esterase (NEGATIVE) Urine Opiates Screen (NEGATIVE) Ur Oxycodone Screen (NEGATIVE) Urine Methadone Screen (NEGATIVE) Ur Barbiturates Screen (NEGATIVE) U Tricyclic Antidepress (NEGATIVE) Ur Phencyclidine Scrn (NEGATIVE) Ur Amphetamine Screen (NEGATIVE) U Methamphetamines Scrn (NEGATIVE) Urine MDMA Screen (NEGATIVE) U Benzodiazepines Scrn (NEGATIVE) Urine Cocaine Screen (NEGATIVE) U Marijuana (THC) Screen (NEGATIVE) Ethyl Alcohol < 3 (0) mg/dL Ketones 06/20/21 06/21/21 06/21/21 Range/Units 23:18 00:10 00:10 WBC (5.0-10.0) 10^3/uL RBC (4.2-5.4) 10^6/uL Hgb (12.0-16.0) g/dL Hct (37.0-47.0) % MCV (80-100) fL MCH (27.0-34.0) pg MCHC (33.0-35.0) g/dL Plt Count (150-450) 10^3/uL Neut % (Auto) (42.2-75.2) % Lymph % (Auto) (20.5-50.1) % Clark % (Auto) (2-8) % Eos % (Auto) (1.0-3.0) % Baso % (Auto) (0.0-1.0) % Sodium (136-145) mmol/L Potassium (3.5-5.1) mmol/L Chloride (98-107) mmol/L Carbon Dioxide (21-32) mmol/L Anion Gap (7-13) mEq/L BUN (7-18) mg/dL Creatinine (0.55-1.02) mg/dL Est Cr Clr Drug Dosing mL/min Estimated GFR (MDRD) BUN/Creatinine Ratio (No establ ref range) Glucose (70-99) mg/dL Lactic Acid (0.4-2.0) mmol/L Calcium (8.5-10.1) mg/dL Magnesium (1.8-2.4) mg/dL Total Bilirubin (0.2-1.0) mg/dL AST (15-37) U/L ALT (14-59) U/L Alkaline Phosphatase (46-116) U/L C-Reactive Protein (0.0-0.9) mg/dL Total Protein (6.4-8.2) g/dL Albumin (3.4-5.0) g/dL Globulin Albumin/Globulin Ratio Amylase (25-115) U/L Lipase (73-393) U/L Urine Color Yellow (YELLOW) Urine Appearance Clear (CLEAR) Urine pH 6.0 (5.0-9.0) Ur Specific [place] 1.015 (1.005-1.030) Urine Protein Negative (NEGATIVE) Urine Glucose (UA) >=1000 H (NEGATIVE) Urine Ketones Trace H (NEGATIVE) Urine Occult Blood Negative (NEGATIVE) Urine Nitrite Negative (NEGATIVE) Urine Bilirubin Negative (NEGATIVE) Urine Urobilinogen 0.2 (0.2-1.0) mg/dL Ur Leukocyte Esterase Negative (NEGATIVE) Urine Opiates Screen Positive H (NEGATIVE) Ur Oxycodone Screen Negative (NEGATIVE) Urine Methadone Screen Negative (NEGATIVE) Ur Barbiturates Screen Negative (NEGATIVE) U Tricyclic Antidepress Negative (NEGATIVE) Ur Phencyclidine Scrn Negative (NEGATIVE) Ur Amphetamine Screen Negative (NEGATIVE) U Methamphetamines Scrn Negative (NEGATIVE) Urine MDMA Screen Negative (NEGATIVE) U Benzodiazepines Scrn Negative (NEGATIVE) Urine Cocaine Screen Negative (NEGATIVE) U Marijuana (THC) Screen Negative (NEGATIVE) Ethyl Alcohol (0) mg/dL Ketones Negative 06/21/21 Range/Units 02:29 WBC (5.0-10.0) 10^3/uL RBC (4.2-5.4) 10^6/uL Hgb (12.0-16.0) g/dL Hct (37.0-47.0) % MCV (80-100) fL MCH (27.0-34.0) pg MCHC (33.0-35.0) g/dL Plt Count (150-450) 10^3/uL Neut % (Auto) (42.2-75.2) % Lymph % (Auto) (20.5-50.1) % Clark % (Auto) (2-8) % Eos % (Auto) (1.0-3.0) % Baso % (Auto) (0.0-1.0) % Sodium (136-145) mmol/L Potassium (3.5-5.1) mmol/L Chloride (98-107) mmol/L Carbon Dioxide (21-32) mmol/L Anion Gap (7-13) mEq/L BUN (7-18) mg/dL Creatinine (0.55-1.02) mg/dL Est Cr Clr Drug Dosing mL/min Estimated GFR (MDRD) BUN/Creatinine Ratio (No establ ref range) Glucose (70-99) mg/dL Lactic Acid 3.0 H* (0.4-2.0) mmol/L Calcium (8.5-10.1) mg/dL Magnesium (1.8-2.4) mg/dL Total Bilirubin (0.2-1.0) mg/dL AST (15-37) U/L ALT (14-59) U/L Alkaline Phosphatase (46-116) U/L C-Reactive Protein (0.0-0.9) mg/dL Total Protein (6.4-8.2) g/dL Albumin (3.4-5.0) g/dL Globulin Albumin/Globulin Ratio Amylase (25-115) U/L Lipase (73-393) U/L Urine Color (YELLOW) Urine Appearance (CLEAR) Urine pH (5.0-9.0) Ur Specific [place] (1.005-1.030) Urine Protein (NEGATIVE) Urine Glucose (UA) (NEGATIVE) Urine Ketones (NEGATIVE) Urine Occult Blood (NEGATIVE) Urine Nitrite (NEGATIVE) Urine Bilirubin (NEGATIVE) Urine Urobilinogen (0.2-1.0) mg/dL Ur Leukocyte Esterase (NEGATIVE) Urine Opiates Screen (NEGATIVE) Ur Oxycodone Screen (NEGATIVE) Urine Methadone Screen (NEGATIVE) Ur Barbiturates Screen (NEGATIVE) U Tricyclic Antidepress (NEGATIVE) Ur Phencyclidine Scrn (NEGATIVE) Ur Amphetamine Screen (NEGATIVE) U Methamphetamines Scrn (NEGATIVE) Urine MDMA Screen (NEGATIVE) U Benzodiazepines Scrn (NEGATIVE) Urine Cocaine Screen (NEGATIVE) U Marijuana (THC) Screen (NEGATIVE) Ethyl Alcohol (0) mg/dL Ketones Result Diagrams: 06/20/21 23:18 06/20/21 23:18 Problem List Initiated/Reviewed/Updated: Yes Orders Last 24hrs: Active Orders 24 hr Category Date Time Status Admission Diagnosis [ADT] Stat ADT 06/21/21 02:33 Ordered Admission Status [Patient Status] [ADT] Routine ADT 06/21/21 02:33 Active Blood Glucose Check, Bedside [RC] Q6H Care 06/21/21 03:10 Ordered Gastrointestinal Tube Mgmt [RC] ASDIRECTED Care 06/21/21 01:48 Active Nasogastric Tube Management [Gastrointestinal Tube Mgmt Care 06/21/21 03:13 Ordered ] [RC] ASDIRECTED Peripheral IV Care [RC] . DIRECTED Care 06/21/21 03:11 Ordered Up ad Heidi [RC] ASDIRECTED Care 06/21/21 03:10 Ordered Vital Signs [RC] Q4H Care 06/21/21 03:10 Ordered Nothing per Oral Now Diet [DIET] Diet 06/21/21 Breakfast Ordered CBC WITH AUTO DIFF [HEME] Routine Lab 06/21/21 05:00 Ordered CLOSTRIDIUM DIFFICILE TOX RFLX [MREF] Routine Lab 06/21/21 03:15 Ordered CMP [COMPREHENSIVE METABOLIC PN,CMP] [CHEM] Routine Lab 06/21/21 05:00 Ordered CULTURE STOOL [RM] Routine Lab 06/21/21 03:15 Ordered [place] [CORONAVIRUS COVID-19 SHAHBAZ] [MOLEC] Stat Lab 06/21/21 02:38 Received INR,PT,PROTHROMBIN TIME [COAG] Routine Lab 06/21/21 05:00 Ordered OVA & PARASITES BY IMMUNOASSAY [MREF] Routine Lab 06/21/21 03:16 Ordered Acetaminophen [TylenoL] Med 06/21/21 03:10 Ordered 650 mg PO Q4H PRN Dextrose 50% in Water Med 06/21/21 03:14 Ordered 50 ml IVPUSH Q15M PRN Docusate Sodium/Sennosides [Senna Plus] Med 06/21/21 09:00 Ordered 2 tab PO BID Enoxaparin [Lovenox] Med 06/21/21 09:00 Ordered 40 mg SUBCUT DAILY Glucagon,Human Recombinant [GlucaGen] Med 06/21/21 03:14 Ordered 1 mg IM Q15M PRN Insulin Lispro [HumaLOG] Med 06/21/21 03:15 Ordered See Protocol SUBCUT Q6H Morphine Med 06/21/21 03:10 Ordered 1 mg IVPUSH Q4H PRN Ondansetron [Zofran] Med 06/21/21 03:10 Ordered 4 mg IVPUSH Q4H PRN Sodium Chloride 0.9% [Normal Saline] 1,000 ml Med 06/21/21 03:15 Ordered IV ASDIRECTED Sodium Chloride 0.9% [Saline Flush] Med 06/21/21 03:10 Ordered 10 ml FLUSH ASDIRECTED PRN Isolation [COMM] Stat Oth 06/21/21 03:15 Ordered NG [Nasogastric Orogastric Tube Insertion] [OM.PC] Oth 06/21/21 01:48 Ordered Routine Peripheral IV Insertion Adult [OM.PC] Routine Oth 06/21/21 03:10 Ordered Resuscitation Status Routine Resus Stat 06/21/21 03:10 Ordered Medication Orders Acetaminophen (Acetaminophen 325 Mg Tab) 650 mg PO Q4H PRN PRN Reason: Pain (Mild 1-3)/fever Dextrose/Water (50% Dextrose In Water 50 Ml Syringe) 50 ml IVPUSH Q15M PRN PRN Reason: Hypoglycemia Enoxaparin Sodium (Enoxaparin 40 Mg/0.4 Ml Syringe) 40 mg SUBCUT DAILY ABHAY Glucagon (Glucagon,Human Recombinant 1 Mg Vial) 1 mg IM Q15M PRN PRN Reason: Hypoglycemia Sodium Chloride (Normal Saline) 1,000 mls @ 100 mls/hr IV ASDIRECTED ABHAY Insulin Human Lispro (Insulin Lispro 100 Units/Ml 3 Ml Vial) 0 unit SUBCUT Q6H ABHAY; Protocol Morphine Sulfate (Morphine 2 Mg/Ml Syringe) 1 mg IVPUSH Q4H PRN PRN Reason: Pain (severe 7-10) Ondansetron HCl (Ondansetron 4 Mg/2 Ml Sdv) 4 mg IVPUSH Q4H PRN PRN Reason: Nausea/Vomiting Senna/Docusate Sodium (Docusate Sodium/Sennosides 50-8.6 Mg Tab) 2 tab PO BID ABHAY Sodium Chloride (Sodium Chloride 0.9% 10 Ml Syringe) 10 ml FLUSH ASDIRECTED PRN PRN Reason: Keep Vein Open Assessment/Plan Comment:: Surgical History: Left elbow surgery, wisdom tooth extraction, sinus surgery, tonsillectomy, hysterectomy, patient has previous documentation of tubal ligation which she denies, previous cholecystectomy however imaging studies are equivocal as to whether this actually occurred Family History: Cancer, stroke, diabetes, coronary artery disease, hypertension, hyperlipidemia Social History: Tobacco: Never Alcohol: Denies Caffeine: Coffee, cola, tea Drugs: Never Allergies: Glipizide Code Status: Full Assessment / Plan: Query ileus. N.p.o. Nasogastric tube set to low intermittent suction. Senna +2 tabs p.o. twice daily with nasogastric tube suction being held for 45 minutes after administration plus IV normal saline 100 mL/h Diarrhea. IV normal saline 100 mL/h. Check stool C. difficile, stool WBC, stool culture, stool ova and parasites Chronic pain Arthritis Seasonal allergies Depression Transaminitis. 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 Will check fasting glucose every 6 hours and provide insulin sliding scale GERD Hyperlipidemia Hypertension Obesity. Patient will be counseled regarding lifestyle modification Osteoporosis Anxiety DVT prophylaxis. Lovenox 40 mg subcutaneously daily Disposition: Anticipate discharge within 48 hours. At the time of admission, the patient's home medications were pending input to the EMR/B[facility] system. Once their input, they will be reviewed and reconciled END OF DOCTOR EMAMIS HISTORY AND PHYSICAL / CONSULTATION NOTE
[2021-06-21] MEDS: Sodium Chloride 0.9% 1,000 ML IV SCH ×2 (03:44→14:30)
[2021-06-21] MEDS: Insulin Lispro 100 Units/ML 3 ML Vial SUBCUT SCH ×4 (03:57→21:07)
[2021-06-21 06:51] LABS: ANION GAP 14.1 mEq/L (7-13); CHLORIDE,CL 103 mmol/L (98-107); SODIUM,NA 139 mmol/L (136-145)
--- NOTE | 2021-06-21 07:36 | PCM.PN ---
- General Info Date of Service: 06/21/21 Subjective Update: Patient states that she is feeling much better compared to my previous encounter with her. She states that her abdominal pain has resolved. Since my last encou nter with her, she denies fever, rigors, nausea, vomiting, cough, wheeze, abdominal pain, chest pain, dyspnea. She indicates that she has had 2 bowel movements which are described as diarrhea. I explained to the patient her current medical condition and plan of care and I have answered all of her questions - Review of Systems General: Reports: No Symptoms HEENT: Reports: No Symptoms Pulmonary: Reports: No Symptoms Gastrointestinal: Reports: Diarrhea Genitourinary: Reports: No Symptoms Musculoskeletal: Reports: No Symptoms Skin: Reports: No Symptoms Neurological: Reports: No Symptoms Psychiatric: Reports: No Symptoms - Patient Data Vitals - Most Recent: Last Vital Signs Temp 97.8 F 06/21/21 03:10 Pulse 77 06/21/21 03:10 Resp 14 06/21/21 03:10 BP 136/61 06/21/21 03:10 Pulse Ox 95 06/21/21 03:10 Weight - Most Recent: 187 lb 12.8 oz I&O - Last 24 Hours: Intake & Output 06/20/21 06/21/21 06/21/21 22:59 06:59 14:59 Output Total 400 Balance -400 Lab Results Last 24 Hours: Laboratory Results - last 24 hr 06/20/21 06/20/21 06/20/21 Range/Units 23:18 23:18 23:18 WBC 13.1 H (5.0-10.0) 10^3/uL RBC 4.98 (4.2-5.4) 10^6/uL Hgb 15.0 D (12.0-16.0) g/dL Hct 43.9 (37.0-47.0) % MCV 88.2 (80-100) fL MCH 30.1 (27.0-34.0) pg MCHC 34.2 (33.0-35.0) g/dL Plt Count 255 (150-450) 10^3/uL Neut % (Auto) 68.0 (42.2-75.2) % Lymph % (Auto) 21.5 (20.5-50.1) % Irwin % (Auto) 9.4 H (2-8) % Eos % (Auto) 0.9 L (1.0-3.0) % Baso % (Auto) 0.2 (0.0-1.0) % Sodium 137 (136-145) mmol/L Potassium 3.7 (3.5-5.1) mmol/L Chloride 100 (98-107) mmol/L Carbon Dioxide 21 (21-32) mmol/L Anion Gap 19.7 H (7-13) mEq/L BUN 13 (7-18) mg/dL Creatinine 0.83 (0.55-1.02) mg/dL Est Cr Clr Drug Dosing 73.60 mL/min Estimated GFR (MDRD) > 60 BUN/Creatinine Ratio 15.7 (No establ ref range) Glucose 216 H (70-99) mg/dL POC Glucose (70-99) mg/dL Lactic Acid 4.8 H* (0.4-2.0) mmol/L Calcium 9.4 (8.5-10.1) mg/dL Magnesium 1.8 (1.8-2.4) mg/dL Total Bilirubin 0.4 (0.2-1.0) mg/dL AST 52 H (15-37) U/L ALT 74 H (14-59) U/L Alkaline Phosphatase 78 (46-116) U/L C-Reactive Protein < 0.2 (0.0-0.9) mg/dL Total Protein 7.3 (6.4-8.2) g/dL Albumin 3.9 (3.4-5.0) g/dL Globulin 3.4 Albumin/Globulin Ratio 1.1 Amylase 26 (25-115) U/L Lipase 125 (73-393) U/L Urine Color (YELLOW) Urine Appearance (CLEAR) Urine pH (5.0-9.0) Ur Specific Waka (1.005-1.030) Urine Protein (NEGATIVE) Urine Glucose (UA) (NEGATIVE) Urine Ketones (NEGATIVE) Urine Occult Blood (NEGATIVE) Urine Nitrite (NEGATIVE) Urine Bilirubin (NEGATIVE) Urine Urobilinogen (0.2-1.0) mg/dL Ur Leukocyte Esterase (NEGATIVE) Urine Opiates Screen (NEGATIVE) Ur Oxycodone Screen (NEGATIVE) Urine Methadone Screen (NEGATIVE) Ur Barbiturates Screen (NEGATIVE) U Tricyclic Antidepress (NEGATIVE) Ur Phencyclidine Scrn (NEGATIVE) Ur Amphetamine Screen (NEGATIVE) U Methamphetamines Scrn (NEGATIVE) Urine MDMA Screen (NEGATIVE) U Benzodiazepines Scrn (NEGATIVE) Urine Cocaine Screen (NEGATIVE) U Marijuana (THC) Screen (NEGATIVE) Ethyl Alcohol < 3 (0) mg/dL Ketones SARS-CoV-2 RNA (SHAHBAZ) (NEGATIVE) 06/20/21 06/21/21 06/21/21 Range/Units 23:18 00:10 00:10 WBC (5.0-10.0) 10^3/uL RBC (4.2-5.4) 10^6/uL Hgb (12.0-16.0) g/dL Hct (37.0-47.0) % MCV (80-100) fL MCH (27.0-34.0) pg MCHC (33.0-35.0) g/dL Plt Count (150-450) 10^3/uL Neut % (Auto) (42.2-75.2) % Lymph % (Auto) (20.5-50.1) % Irwin % (Auto) (2-8) % Eos % (Auto) (1.0-3.0) % Baso % (Auto) (0.0-1.0) % Sodium (136-145) mmol/L Potassium (3.5-5.1) mmol/L Chloride (98-107) mmol/L Carbon Dioxide (21-32) mmol/L Anion Gap (7-13) mEq/L BUN (7-18) mg/dL Creatinine (0.55-1.02) mg/dL Est Cr Clr Drug Dosing mL/min Estimated GFR (MDRD) BUN/Creatinine Ratio (No establ ref range) Glucose (70-99) mg/dL POC Glucose (70-99) mg/dL Lactic Acid (0.4-2.0) mmol/L Calcium (8.5-10.1) mg/dL Magnesium (1.8-2.4) mg/dL Total Bilirubin (0.2-1.0) mg/dL AST (15-37) U/L ALT (14-59) U/L Alkaline Phosphatase (46-116) U/L C-Reactive Protein (0.0-0.9) mg/dL Total Protein (6.4-8.2) g/dL Albumin (3.4-5.0) g/dL Globulin Albumin/Globulin Ratio Amylase (25-115) U/L Lipase (73-393) U/L Urine Color Yellow (YELLOW) Urine Appearance Clear (CLEAR) Urine pH 6.0 (5.0-9.0) Ur Specific Waka 1.015 (1.005-1.030) Urine Protein Negative (NEGATIVE) Urine Glucose (UA) >=1000 H (NEGATIVE) Urine Ketones Trace H (NEGATIVE) Urine Occult Blood Negative (NEGATIVE) Urine Nitrite Negative (NEGATIVE) Urine Bilirubin Negative (NEGATIVE) Urine Urobilinogen 0.2 (0.2-1.0) mg/dL Ur Leukocyte Esterase Negative (NEGATIVE) Urine Opiates Screen Positive H (NEGATIVE) Ur Oxycodone Screen Negative (NEGATIVE) Urine Methadone Screen Negative (NEGATIVE) Ur Barbiturates Screen Negative (NEGATIVE) U Tricyclic Antidepress Negative (NEGATIVE) Ur Phencyclidine Scrn Negative (NEGATIVE) Ur Amphetamine Screen Negative (NEGATIVE) U Methamphetamines Scrn Negative (NEGATIVE) Urine MDMA Screen Negative (NEGATIVE) U Benzodiazepines Scrn Negative (NEGATIVE) Urine Cocaine Screen Negative (NEGATIVE) U Marijuana (THC) Screen Negative (NEGATIVE) Ethyl Alcohol (0) mg/dL Ketones Negative SARS-CoV-2 RNA (SHAHBAZ) (NEGATIVE) 06/21/21 06/21/21 06/21/21 Range/Units 02:29 02:38 03:39 WBC (5.0-10.0) 10^3/uL RBC (4.2-5.4) 10^6/uL Hgb (12.0-16.0) g/dL Hct (37.0-47.0) % MCV (80-100) fL MCH (27.0-34.0) pg MCHC (33.0-35.0) g/dL Plt Count (150-450) 10^3/uL Neut % (Auto) (42.2-75.2) % Lymph % (Auto) (20.5-50.1) % Irwin % (Auto) (2-8) % Eos % (Auto) (1.0-3.0) % Baso % (Auto) (0.0-1.0) % Sodium (136-145) mmol/L Potassium (3.5-5.1) mmol/L Chloride (98-107) mmol/L Carbon Dioxide (21-32) mmol/L Anion Gap (7-13) mEq/L BUN (7-18) mg/dL Creatinine (0.55-1.02) mg/dL Est Cr Clr Drug Dosing mL/min Estimated GFR (MDRD) BUN/Creatinine Ratio (No establ ref range) Glucose (70-99) mg/dL POC Glucose 182 H (70-99) mg/dL Lactic Acid 3.0 H* (0.4-2.0) mmol/L Calcium (8.5-10.1) mg/dL Magnesium (1.8-2.4) mg/dL Total Bilirubin (0.2-1.0) mg/dL AST (15-37) U/L ALT (14-59) U/L Alkaline Phosphatase (46-116) U/L C-Reactive Protein (0.0-0.9) mg/dL Total Protein (6.4-8.2) g/dL Albumin (3.4-5.0) g/dL Globulin Albumin/Globulin Ratio Amylase (25-115) U/L Lipase (73-393) U/L Urine Color (YELLOW) Urine Appearance (CLEAR) Urine pH (5.0-9.0) Ur Specific Waka (1.005-1.030) Urine Protein (NEGATIVE) Urine Glucose (UA) (NEGATIVE) Urine Ketones (NEGATIVE) Urine Occult Blood (NEGATIVE) Urine Nitrite (NEGATIVE) Urine Bilirubin (NEGATIVE) Urine Urobilinogen (0.2-1.0) mg/dL Ur Leukocyte Esterase (NEGATIVE) Urine Opiates Screen (NEGATIVE) Ur Oxycodone Screen (NEGATIVE) Urine Methadone Screen (NEGATIVE) Ur Barbiturates Screen (NEGATIVE) U Tricyclic Antidepress (NEGATIVE) Ur Phencyclidine Scrn (NEGATIVE) Ur Amphetamine Screen (NEGATIVE) U Methamphetamines Scrn (NEGATIVE) Urine MDMA Screen (NEGATIVE) U Benzodiazepines Scrn (NEGATIVE) Urine Cocaine Screen (NEGATIVE) U Marijuana (THC) Screen (NEGATIVE) Ethyl Alcohol (0) mg/dL Ketones SARS-CoV-2 RNA (SHAHBAZ) Negative (NEGATIVE) 06/21/21 06/21/21 Range/Units 06:10 06:10 WBC 16.2 H (5.0-10.0) 10^3/uL RBC 4.65 (4.2-5.4) 10^6/uL Hgb 14.0 (12.0-16.0) g/dL Hct 41.5 (37.0-47.0) % MCV 89.2 (80-100) fL MCH 30.1 (27.0-34.0) pg MCHC 33.7 (33.0-35.0) g/dL Plt Count 231 (150-450) 10^3/uL Neut % (Auto) 85.3 H (42.2-75.2) % Lymph % (Auto) 6.3 L (20.5-50.1) % Irwin % (Auto) 7.9 (2-8) % Eos % (Auto) 0.4 L (1.0-3.0) % Baso % (Auto) 0.1 (0.0-1.0) % Sodium 139 (136-145) mmol/L Potassium 4.1 (3.5-5.1) mmol/L Chloride 103 (98-107) mmol/L Carbon Dioxide 26 (21-32) mmol/L Anion Gap 14.1 H (7-13) mEq/L BUN 14 (7-18) mg/dL Creatinine 0.68 (0.55-1.02) mg/dL Est Cr Clr Drug Dosing 89.83 mL/min Estimated GFR (MDRD) > 60 BUN/Creatinine Ratio 20.6 (No establ ref range) Glucose 180 H (70-99) mg/dL POC Glucose (70-99) mg/dL Lactic Acid (0.4-2.0) mmol/L Calcium 8.4 L (8.5-10.1) mg/dL Magnesium (1.8-2.4) mg/dL Total Bilirubin 0.5 (0.2-1.0) mg/dL AST 44 H (15-37) U/L ALT 70 H (14-59) U/L Alkaline Phosphatase 69 (46-116) U/L C-Reactive Protein (0.0-0.9) mg/dL Total Protein 6.6 (6.4-8.2) g/dL Albumin 3.4 (3.4-5.0) g/dL Globulin 3.2 Albumin/Globulin Ratio 1.1 Amylase (25-115) U/L Lipase (73-393) U/L Urine Color (YELLOW) Urine Appearance (CLEAR) Urine pH (5.0-9.0) Ur Specific Waka (1.005-1.030) Urine Protein (NEGATIVE) Urine Glucose (UA) (NEGATIVE) Urine Ketones (NEGATIVE) Urine Occult Blood (NEGATIVE) Urine Nitrite (NEGATIVE) Urine Bilirubin (NEGATIVE) Urine Urobilinogen (0.2-1.0) mg/dL Ur Leukocyte Esterase (NEGATIVE) Urine Opiates Screen (NEGATIVE) Ur Oxycodone Screen (NEGATIVE) Urine Methadone Screen (NEGATIVE) Ur Barbiturates Screen (NEGATIVE) U Tricyclic Antidepress (NEGATIVE) Ur Phencyclidine Scrn (NEGATIVE) Ur Amphetamine Screen (NEGATIVE) U Methamphetamines Scrn (NEGATIVE) Urine MDMA Screen (NEGATIVE) U Benzodiazepines Scrn (NEGATIVE) Urine Cocaine Screen (NEGATIVE) U Marijuana (THC) Screen (NEGATIVE) Ethyl Alcohol (0) mg/dL Ketones SARS-CoV-2 RNA (SHAHBAZ) (NEGATIVE) Med Orders - Current: Current Medications Acetaminophen (Acetaminophen 325 Mg Tab) 650 mg PO Q4H PRN PRN Reason: Pain (Mild 1-3)/fever Dextrose/Water (50% Dextrose In Water 50 Ml Syringe) 50 ml IVPUSH Q15M PRN PRN Reason: Hypoglycemia Enoxaparin Sodium (Enoxaparin 40 Mg/0.4 Ml Syringe) 40 mg SUBCUT DAILY [facility] Glucagon (Glucagon,Human Recombinant 1 Mg Vial) 1 mg IM Q15M PRN PRN Reason: Hypoglycemia Sodium Chloride (Normal Saline) 1,000 mls @ 100 mls/hr IV ASDIRECTED [facility] Last Admin: 06/21/21 03:44 Dose: 100 mls/hr Documented by: Metronidazole 500 mg/ Premix 100 mls @ 100 mls/hr IV Q6H [facility] Insulin Human Lispro (Insulin Lispro 100 Units/Ml 3 Ml Vial) 0 unit SUBCUT Q6H [facility]; Protocol Last Admin: 06/21/21 03:57 Dose: 1 unit Documented by: Morphine Sulfate (Morphine 2 Mg/Ml Syringe) 1 mg IVPUSH Q4H PRN PRN Reason: Pain (severe 7-10) Ondansetron HCl (Ondansetron 4 Mg/2 Ml Sdv) 4 mg IVPUSH Q4H PRN PRN Reason: Nausea/Vomiting Senna/Docusate Sodium (Docusate Sodium/Sennosides 50-8.6 Mg Tab) 2 tab PO BID [facility] Sodium Chloride (Sodium Chloride 0.9% 10 Ml Syringe) 10 ml FLUSH ASDIRECTED PRN PRN Reason: Keep Vein Open Discontinued Medications Acetaminophen (Acetaminophen 500 Mg Tab) 1,000 mg PO ONETIME ONE Stop: 06/21/21 01:02 Last Admin: 06/21/21 01:21 Dose: 1,000 mg Documented by: Hydromorphone HCl (Hydromorphone 1 Mg/Ml Syringe) 1 mg IVPUSH ONETIME ONE Stop: 06/20/21 23:18 Last Admin: 06/20/21 23:27 Dose: 1 mg Documented by: Sodium Chloride (Normal Saline) 1,000 mls @ 999 mls/hr IV .BOLUS ONE Stop: 06/21/21 01:43 Last Admin: 06/21/21 00:47 Dose: 999 mls/hr Documented by: Iopamidol (Iopamidol 612 Mg/Ml 100 Ml Bottle) 100 ml IVPUSH ONETIME ONE Stop: 06/20/21 23:51 Last Admin: 06/21/21 00:02 Dose: 100 ml Documented by: Metoclopramide HCl (Metoclopramide 10 Mg/2 Ml Sdv) 10 mg IVPUSH ONETIME ONE Stop: 06/20/21 23:17 Last Admin: 06/20/21 23:27 Dose: 10 mg Documented by: - Exam General: Alert, Oriented HEENT: Pupils Equal, Pupils Reactive, EOMI, Mucous Membr. Moist/[place] Neck: Supple Lungs: Clear to Auscultation, Normal Respiratory Effort Cardiovascular: Regular Rate, Regular Rhythm GI/Abdominal Exam: Normal Bowel Sounds, Soft, Non-Tender, No Organomegaly, No Distention, No Abnormal Bruit, No Mass, Pelvis Stable Extremities: Normal Inspection, Normal Range of Motion, Non-Tender, No Pedal Edema, Normal Capillary Refill Peripheral Pulses: 2+: Carotid (L), Carotid (R), Brachial (L), Brachial (R), Radial (L), Radial (R), Femoral (L), Femoral (R), Popliteal (L), Popliteal (R), Posterior Tibial (L), Posterior Tibial (R), Dorsalis Pedis (L), Dorsalis Pedis (R) Skin: Warm, Dry, Intact Wound/Incisions: Healing Well Neurological: No New Focal Deficit Psy/Mental Status: Alert, Normal Affect, Normal Mood - Patient Data Lab Results Last 24 hrs: Laboratory Results - last 24 hr 06/20/21 06/20/21 06/20/21 Range/Units 23:18 23:18 23:18 WBC 13.1 H (5.0-10.0) 10^3/uL RBC 4.98 (4.2-5.4) 10^6/uL Hgb 15.0 D (12.0-16.0) g/dL Hct 43.9 (37.0-47.0) % MCV 88.2 (80-100) fL MCH 30.1 (27.0-34.0) pg MCHC 34.2 (33.0-35.0) g/dL Plt Count 255 (150-450) 10^3/uL Neut % (Auto) 68.0 (42.2-75.2) % Lymph % (Auto) 21.5 (20.5-50.1) % Irwin % (Auto) 9.4 H (2-8) % Eos % (Auto) 0.9 L (1.0-3.0) % Baso % (Auto) 0.2 (0.0-1.0) % Sodium 137 (136-145) mmol/L Potassium 3.7 (3.5-5.1) mmol/L Chloride 100 (98-107) mmol/L Carbon Dioxide 21 (21-32) mmol/L Anion Gap 19.7 H (7-13) mEq/L BUN 13 (7-18) mg/dL Creatinine 0.83 (0.55-1.02) mg/dL Est Cr Clr Drug Dosing 73.60 mL/min Estimated GFR (MDRD) > 60 BUN/Creatinine Ratio 15.7 (No establ ref range) Glucose 216 H (70-99) mg/dL POC Glucose (70-99) mg/dL Lactic Acid 4.8 H* (0.4-2.0) mmol/L Calcium 9.4 (8.5-10.1) mg/dL Magnesium 1.8 (1.8-2.4) mg/dL Total Bilirubin 0.4 (0.2-1.0) mg/dL AST 52 H (15-37) U/L ALT 74 H (14-59) U/L Alkaline Phosphatase 78 (46-116) U/L C-Reactive Protein < 0.2 (0.0-0.9) mg/dL Total Protein 7.3 (6.4-8.2) g/dL Albumin 3.9 (3.4-5.0) g/dL Globulin 3.4 Albumin/Globulin Ratio 1.1 Amylase 26 (25-115) U/L Lipase 125 (73-393) U/L Urine Color (YELLOW) Urine Appearance (CLEAR) Urine pH (5.0-9.0) Ur Specific Waka (1.005-1.030) Urine Protein (NEGATIVE) Urine Glucose (UA) (NEGATIVE) Urine Ketones (NEGATIVE) Urine Occult Blood (NEGATIVE) Urine Nitrite (NEGATIVE) Urine Bilirubin (NEGATIVE) Urine Urobilinogen (0.2-1.0) mg/dL Ur Leukocyte Esterase (NEGATIVE) Urine Opiates Screen (NEGATIVE) Ur Oxycodone Screen (NEGATIVE) Urine Methadone Screen (NEGATIVE) Ur Barbiturates Screen (NEGATIVE) U Tricyclic Antidepress (NEGATIVE) Ur Phencyclidine Scrn (NEGATIVE) Ur Amphetamine Screen (NEGATIVE) U Methamphetamines Scrn (NEGATIVE) Urine MDMA Screen (NEGATIVE) U Benzodiazepines Scrn (NEGATIVE) Urine Cocaine Screen (NEGATIVE) U Marijuana (THC) Screen (NEGATIVE) Ethyl Alcohol < 3 (0) mg/dL Ketones SARS-CoV-2 RNA (SHAHBAZ) (NEGATIVE) 06/20/21 06/21/21 06/21/21 Range/Units 23:18 00:10 00:10 WBC (5.0-10.0) 10^3/uL RBC (4.2-5.4) 10^6/uL Hgb (12.0-16.0) g/dL Hct (37.0-47.0) % MCV (80-100) fL MCH (27.0-34.0) pg MCHC (33.0-35.0) g/dL Plt Count (150-450) 10^3/uL Neut % (Auto) (42.2-75.2) % Lymph % (Auto) (20.5-50.1) % Irwin % (Auto) (2-8) % Eos % (Auto) (1.0-3.0) % Baso % (Auto) (0.0-1.0) % Sodium (136-145) mmol/L Potassium (3.5-5.1) mmol/L Chloride (98-107) mmol/L Carbon Dioxide (21-32) mmol/L Anion Gap (7-13) mEq/L BUN (7-18) mg/dL Creatinine (0.55-1.02) mg/dL Est Cr Clr Drug Dosing mL/min Estimated GFR (MDRD) BUN/Creatinine Ratio (No establ ref range) Glucose (70-99) mg/dL POC Glucose (70-99) mg/dL Lactic Acid (0.4-2.0) mmol/L Calcium (8.5-10.1) mg/dL Magnesium (1.8-2.4) mg/dL Total Bilirubin (0.2-1.0) mg/dL AST (15-37) U/L ALT (14-59) U/L Alkaline Phosphatase (46-116) U/L C-Reactive Protein (0.0-0.9) mg/dL Total Protein (6.4-8.2) g/dL Albumin (3.4-5.0) g/dL Globulin Albumin/Globulin Ratio Amylase (25-115) U/L Lipase (73-393) U/L Urine Color Yellow (YELLOW) Urine Appearance Clear (CLEAR) Urine pH 6.0 (5.0-9.0) Ur Specific Waka 1.015 (1.005-1.030) Urine Protein Negative (NEGATIVE) Urine Glucose (UA) >=1000 H (NEGATIVE) Urine Ketones Trace H (NEGATIVE) Urine Occult Blood Negative (NEGATIVE) Urine Nitrite Negative (NEGATIVE) Urine Bilirubin Negative (NEGATIVE) Urine Urobilinogen 0.2 (0.2-1.0) mg/dL Ur Leukocyte Esterase Negative (NEGATIVE) Urine Opiates Screen Positive H (NEGATIVE) Ur Oxycodone Screen Negative (NEGATIVE) Urine Methadone Screen Negative (NEGATIVE) Ur Barbiturates Screen Negative (NEGATIVE) U Tricyclic Antidepress Negative (NEGATIVE) Ur Phencyclidine Scrn Negative (NEGATIVE) Ur Amphetamine Screen Negative (NEGATIVE) U Methamphetamines Scrn Negative (NEGATIVE) Urine MDMA Screen Negative (NEGATIVE) U Benzodiazepines Scrn Negative (NEGATIVE) Urine Cocaine Screen Negative (NEGATIVE) U Marijuana (THC) Screen Negative (NEGATIVE) Ethyl Alcohol (0) mg/dL Ketones Negative SARS-CoV-2 RNA (SHAHBAZ) (NEGATIVE) 06/21/21 06/21/21 06/21/21 Range/Units 02:29 02:38 03:39 WBC (5.0-10.0) 10^3/uL RBC (4.2-5.4) 10^6/uL Hgb (12.0-16.0) g/dL Hct (37.0-47.0) % MCV (80-100) fL MCH (27.0-34.0) pg MCHC (33.0-35.0) g/dL Plt Count (150-450) 10^3/uL Neut % (Auto) (42.2-75.2) % Lymph % (Auto) (20.5-50.1) % [place] % (Auto) (2-8) % Eos % (Auto) (1.0-3.0) % Baso % (Auto) (0.0-1.0) % Sodium (136-145) mmol/L Potassium (3.5-5.1) mmol/L Chloride (98-107) mmol/L Carbon Dioxide (21-32) mmol/L Anion Gap (7-13) mEq/L BUN (7-18) mg/dL Creatinine (0.55-1.02) mg/dL Est Cr Clr Drug Dosing mL/min Estimated GFR (MDRD) BUN/Creatinine Ratio (No establ ref range) Glucose (70-99) mg/dL POC Glucose 182 H (70-99) mg/dL Lactic Acid 3.0 H* (0.4-2.0) mmol/L Calcium (8.5-10.1) mg/dL Magnesium (1.8-2.4) mg/dL Total Bilirubin (0.2-1.0) mg/dL AST (15-37) U/L ALT (14-59) U/L Alkaline Phosphatase (46-116) U/L C-Reactive Protein (0.0-0.9) mg/dL Total Protein (6.4-8.2) g/dL Albumin (3.4-5.0) g/dL Globulin Albumin/Globulin Ratio Amylase (25-115) U/L Lipase (73-393) U/L Urine Color (YELLOW) Urine Appearance (CLEAR) Urine pH (5.0-9.0) Ur Specific [place] (1.005-1.030) Urine Protein (NEGATIVE) Urine Glucose (UA) (NEGATIVE) Urine Ketones (NEGATIVE) Urine Occult Blood (NEGATIVE) Urine Nitrite (NEGATIVE) Urine Bilirubin (NEGATIVE) Urine Urobilinogen (0.2-1.0) mg/dL Ur Leukocyte Esterase (NEGATIVE) Urine Opiates Screen (NEGATIVE) Ur Oxycodone Screen (NEGATIVE) Urine Methadone Screen (NEGATIVE) Ur Barbiturates Screen (NEGATIVE) U Tricyclic Antidepress (NEGATIVE) Ur Phencyclidine Scrn (NEGATIVE) Ur Amphetamine Screen (NEGATIVE) U Methamphetamines Scrn (NEGATIVE) Urine MDMA Screen (NEGATIVE) U Benzodiazepines Scrn (NEGATIVE) Urine Cocaine Screen (NEGATIVE) U Marijuana (THC) Screen (NEGATIVE) Ethyl Alcohol (0) mg/dL Ketones SARS-CoV-2 RNA (SHAHBAZ) Negative (NEGATIVE) 06/21/21 06/21/21 Range/Units 06:10 06:10 WBC 16.2 H (5.0-10.0) 10^3/uL RBC 4.65 (4.2-5.4) 10^6/uL Hgb 14.0 (12.0-16.0) g/dL Hct 41.5 (37.0-47.0) % MCV 89.2 (80-100) fL MCH 30.1 (27.0-34.0) pg MCHC 33.7 (33.0-35.0) g/dL Plt Count 231 (150-450) 10^3/uL Neut % (Auto) 85.3 H (42.2-75.2) % Lymph % (Auto) 6.3 L (20.5-50.1) % [place] % (Auto) 7.9 (2-8) % Eos % (Auto) 0.4 L (1.0-3.0) % Baso % (Auto) 0.1 (0.0-1.0) % Sodium 139 (136-145) mmol/L Potassium 4.1 (3.5-5.1) mmol/L Chloride 103 (98-107) mmol/L Carbon Dioxide 26 (21-32) mmol/L Anion Gap 14.1 H (7-13) mEq/L BUN 14 (7-18) mg/dL Creatinine 0.68 (0.55-1.02) mg/dL Est Cr Clr Drug Dosing 89.83 mL/min Estimated GFR (MDRD) > 60 BUN/Creatinine Ratio 20.6 (No establ ref range) Glucose 180 H (70-99) mg/dL POC Glucose (70-99) mg/dL Lactic Acid (0.4-2.0) mmol/L Calcium 8.4 L (8.5-10.1) mg/dL Magnesium (1.8-2.4) mg/dL Total Bilirubin 0.5 (0.2-1.0) mg/dL AST 44 H (15-37) U/L ALT 70 H (14-59) U/L Alkaline Phosphatase 69 (46-116) U/L C-Reactive Protein (0.0-0.9) mg/dL Total Protein 6.6 (6.4-8.2) g/dL Albumin 3.4 (3.4-5.0) g/dL Globulin 3.2 Albumin/Globulin Ratio 1.1 Amylase (25-115) U/L Lipase (73-393) U/L Urine Color (YELLOW) Urine Appearance (CLEAR) Urine pH (5.0-9.0) Ur Specific [place] (1.005-1.030) Urine Protein (NEGATIVE) Urine Glucose (UA) (NEGATIVE) Urine Ketones (NEGATIVE) Urine Occult Blood (NEGATIVE) Urine Nitrite (NEGATIVE) Urine Bilirubin (NEGATIVE) Urine Urobilinogen (0.2-1.0) mg/dL Ur Leukocyte Esterase (NEGATIVE) Urine Opiates Screen (NEGATIVE) Ur Oxycodone Screen (NEGATIVE) Urine Methadone Screen (NEGATIVE) Ur Barbiturates Screen (NEGATIVE) U Tricyclic Antidepress (NEGATIVE) Ur Phencyclidine Scrn (NEGATIVE) Ur Amphetamine Screen (NEGATIVE) U Methamphetamines Scrn (NEGATIVE) Urine MDMA Screen (NEGATIVE) U Benzodiazepines Scrn (NEGATIVE) Urine Cocaine Screen (NEGATIVE) U Marijuana (THC) Screen (NEGATIVE) Ethyl Alcohol (0) mg/dL Ketones SARS-CoV-2 RNA (SHAHBAZ) (NEGATIVE) Result Diagrams: 06/21/21 06:10 06/21/21 06:10 Sepsis Event Note - Evaluation Sepsis Screening Result: No Definite Risk - Focused Exam Vital Signs: Vital Signs Temp Pulse Resp BP BP Pulse Ox 06/21/21 03:10 97.8 F 77 14 134/56 L 136/61 95 06/20/21 23:10 97.1 F 63 20 135/71 95 - Problem List Review Problem List Initiated/Reviewed/Updated: Yes - My Orders Last 24 Hours: My Active Orders 06/21/21 03:10 Blood Glucose Check, Bedside [] Q6H Up ad Heidi [RC] ASDIRECTED Vital Signs [RC] 08,12,16,20,00,04 Acetaminophen [TylenoL] 650 mg PO Q4H PRN Morphine 1 mg IVPUSH Q4H PRN Ondansetron [Zofran] 4 mg IVPUSH Q4H PRN Sodium Chloride 0.9% [Saline Flush] 10 ml FLUSH ASDIRECTED PRN Peripheral IV Insertion Adult [OM.PC] Routine Resuscitation Status Routine 06/21/21 03:11 Peripheral IV Care [] 06/21/21 03:13 Nasogastric Tube Management [Gastrointestinal Tube Mgmt] [] ASDIRECTED 06/21/21 03:14 Dextrose 50% in Water 50 ml IVPUSH Q15M PRN Glucagon,Human Recombinant [GlucaGen] 1 mg IM Q15M PRN 06/21/21 03:15 CLOSTRIDIUM DIFFICILE TOX RFLX [MREF] Routine CULTURE STOOL [RM] Routine Insulin Lispro [HumaLOG] See Protocol SUBCUT Q6H Sodium Chloride 0.9% [Normal Saline] 1,000 ml IV ASDIRECTED Isolation [COMM] Stat 06/21/21 03:16 OVA & PARASITES BY IMMUNOASSAY [MREF] Routine 06/21/21 06:10 INR,PT,PROTHROMBIN TIME [COAG] Routine 06/21/21 Breakfast Nothing per Oral Now Diet [DIET] 06/21/21 07:45 metroNIDAZOLE/Normal Saline [Flagyl in NS 500 MG/100 ML] 500 mg Premix Bag 100 bag IV Q6H 06/21/21 09:00 Docusate Sodium/Sennosides [Senna Plus] 2 tab PO BID Enoxaparin [Lovenox] 40 mg SUBCUT DAILY 06/22/21 05:00 CBC WITH AUTO DIFF [HEME] Routine CMP [COMPREHENSIVE METABOLIC PN,CMP] [CHEM] Routine - Plan Plan:: Surgical History: Left elbow surgery, wisdom tooth extraction, sinus surgery, tonsillectomy, hysterectomy, patient has previous documentation of tubal ligation which she denies, previous cholecystectomy however imaging studies are equivocal as to whether this actually occurred Family History: Cancer, stroke, diabetes, coronary artery disease, hypertension, hyperlipidemia Social History: Tobacco: Never Alcohol: Denies Caffeine: Coffee, cola, tea Drugs: Never Allergies: Glipizide Code Status: Full Assessment / Plan: Query ileus. N.p.o. Nasogastric tube set to low intermittent suction. Senna +2 tabs p.o. twice daily with nasogastric tube suction being held for 45 minutes after administration plus IV normal saline 100 mL/h Diarrhea. IV normal saline 100 mL/h plus Flagyl 500 mg IV every 6 hours. Check stool C. difficile, stool WBC, stool culture, stool ova and parasites Chronic pain Arthritis Seasonal allergies. Zyrtec 10 mg p.o. daily Depression. Zoloft 50 mg p.o. daily Transaminitis. 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 Will check fasting glucose every 6 hours and provide insulin sliding scale GERD. Pepcid 20 mg p.o. twice daily Hyperlipidemia. Crestor 20 mg p.o. nightly Hypertension. Ramipril 15 mg p.o. daily Obesity. Patient will be counseled regarding lifestyle modification Osteoporosis Anxiety DVT prophylaxis. Lovenox 40 mg subcutaneously daily Disposition: Anticipate discharge within 24 to 48 hours END OF DOCTOR EMAMIS HISTORY AND PHYSICAL / CONSULTATION NOTE
[2021-06-21] MEDS: metroNIDAZOLE/Normal Saline 500 MG in Premix Bag 100 BAG IV SCH ×3 (08:12→20:14)
[2021-06-21] MEDS: Ramipril 5 MG Cap PO SCH (09:06)
[2021-06-21] MEDS: Aspirin 81 MG Tab.EC PO SCH (09:06)
[2021-06-21] MEDS: Sertraline 50 MG Tab PO SCH (09:06)
[2021-06-21] MEDS: Famotidine 20 MG Tab PO SCH ×2 (09:06→21:08)
[2021-06-21] MEDS: Enoxaparin 40 MG/0.4 ML Syringe SUBCUT SCH (09:08)
[2021-06-21] MEDS: Benzocaine/Cetylpyridinium/Menthol Lozenge MUCMEM PRN (16:18)
[2021-06-21] MEDS: Rosuvastatin 10 MG Tab PO SCH (21:08)
[2021-06-21] MEDS: Acetaminophen 325 MG Tab PO PRN (21:16)
[2021-06-22] MEDS: metroNIDAZOLE/Normal Saline 500 MG in Premix Bag 100 BAG IV SCH ×4 (01:46→19:41)
[2021-06-22] MEDS: Insulin Lispro 100 Units/ML 3 ML Vial SUBCUT SCH ×4 (03:07→21:19)
[2021-06-22] MEDS: Sodium Chloride 0.9% 1,000 ML IV SCH ×2 (03:41→15:45)
[2021-06-22] MEDS: Acetaminophen 325 MG Tab PO PRN ×2 (06:07→21:02)
[2021-06-22 06:11] LABS: CHLORIDE,CL 104 mmol/L (98-107); SODIUM,NA 140 mmol/L (136-145)
--- NOTE | 2021-06-22 07:13 | PCM.PN ---
- General Info Date of Service: 06/22/21 Subjective Update: The patient endorses no complaints at this time. She denies fever, rigors, nausea, vomiting, cough, wheeze, abdominal pain, chest pain. Since my last encounter with her she has not had any bowel movements. Upon discussion with the nursing staff the patient's nasogastric tube has had approximately 600 mL output since approximately 7 PM on June 21, 2021. I explained to the patient her current medical condition and plan of care and I have answered all of her questions - Review of Systems General: Reports: No Symptoms HEENT: Reports: No Symptoms Pulmonary: Reports: No Symptoms Cardiovascular: Reports: No Symptoms Gastrointestinal: Reports: No Symptoms Genitourinary: Reports: No Symptoms Musculoskeletal: Reports: No Symptoms Skin: Reports: No Symptoms Neurological: Reports: No Symptoms Psychiatric: Reports: No Symptoms - Patient Data Vitals - Most Recent: Last Vital Signs Temp 98.8 F 06/22/21 04:00 Pulse 68 06/22/21 04:00 Resp 16 06/22/21 04:00 BP 128/64 06/22/21 04:00 Pulse Ox 94 L 06/22/21 04:00 Weight - Most Recent: 187 lb 12.8 oz I&O - Last 24 Hours: Intake & Output 06/21/21 06/22/21 06/22/21 22:59 06:59 14:59 Intake Total 100 1200 Output Total 1700 1200 Balance -1600 0 Lab Results Last 24 Hours: Laboratory Results - last 24 hr 06/21/21 06/21/21 06/21/21 Range/Units 06:10 09:18 15:20 WBC (5.0-10.0) 10^3/uL RBC (4.2-5.4) 10^6/uL Hgb (12.0-16.0) g/dL Hct (37.0-47.0) % MCV (80-100) fL MCH (27.0-34.0) pg MCHC (33.0-35.0) g/dL Plt Count (150-450) 10^3/uL Neut % (Auto) (42.2-75.2) % Lymph % (Auto) (20.5-50.1) % [place] % (Auto) (2-8) % Eos % (Auto) (1.0-3.0) % Baso % (Auto) (0.0-1.0) % PT 11.0 (9.0-12.0) SEC INR 1.1 (0.9-1.2) Sodium (136-145) mmol/L Potassium (3.5-5.1) mmol/L Chloride (98-107) mmol/L Carbon Dioxide (21-32) mmol/L Anion Gap (7-13) mEq/L BUN (7-18) mg/dL Creatinine (0.55-1.02) mg/dL Est Cr Clr Drug Dosing mL/min Estimated GFR (MDRD) BUN/Creatinine Ratio (No establ ref range) Glucose (70-99) mg/dL POC Glucose 196 H 156 H (70-99) mg/dL Calcium (8.5-10.1) mg/dL Total Bilirubin (0.2-1.0) mg/dL AST (15-37) U/L ALT (14-59) U/L Alkaline Phosphatase (46-116) U/L Total Protein (6.4-8.2) g/dL Albumin (3.4-5.0) g/dL Globulin Albumin/Globulin Ratio 06/21/21 06/22/21 06/22/21 Range/Units 21:05 03:03 05:40 WBC 9.2 (5.0-10.0) 10^3/uL RBC 4.29 (4.2-5.4) 10^6/uL Hgb 12.8 (12.0-16.0) g/dL Hct 39.3 (37.0-47.0) % MCV 91.6 (80-100) fL MCH 29.8 (27.0-34.0) pg MCHC 32.6 L (33.0-35.0) g/dL Plt Count 200 (150-450) 10^3/uL Neut % (Auto) 62.4 (42.2-75.2) % Lymph % (Auto) 24.0 (20.5-50.1) % [place] % (Auto) 11.8 H (2-8) % Eos % (Auto) 1.7 (1.0-3.0) % Baso % (Auto) 0.1 (0.0-1.0) % PT (9.0-12.0) SEC INR (0.9-1.2) Sodium (136-145) mmol/L Potassium (3.5-5.1) mmol/L Chloride (98-107) mmol/L Carbon Dioxide (21-32) mmol/L Anion Gap (7-13) mEq/L BUN (7-18) mg/dL Creatinine (0.55-1.02) mg/dL Est Cr Clr Drug Dosing mL/min Estimated GFR (MDRD) BUN/Creatinine Ratio (No establ ref range) Glucose (70-99) mg/dL POC Glucose 197 H 216 H (70-99) mg/dL Calcium (8.5-10.1) mg/dL Total Bilirubin (0.2-1.0) mg/dL AST (15-37) U/L ALT (14-59) U/L Alkaline Phosphatase (46-116) U/L Total Protein (6.4-8.2) g/dL Albumin (3.4-5.0) g/dL Globulin Albumin/Globulin Ratio 08// Range/Units 05:40 WBC (5.0-10.0) 10^3/uL RBC (4.2-5.4) 10^6/uL Hgb (12.0-16.0) g/dL Hct (37.0-47.0) % MCV (80-100) fL MCH (27.0-34.0) pg MCHC (33.0-35.0) g/dL Plt Count (150-450) 10^3/uL Neut % (Auto) (42.2-75.2) % Lymph % (Auto) (20.5-50.1) % [place] % (Auto) (2-8) % Eos % (Auto) (1.0-3.0) % Baso % (Auto) (0.0-1.0) % PT (9.0-12.0) SEC INR (0.9-1.2) Sodium 140 (136-145) mmol/L Potassium 4.0 (3.5-5.1) mmol/L Chloride 104 (98-107) mmol/L Carbon Dioxide 29 (21-32) mmol/L Anion Gap 11.0 (7-13) mEq/L BUN 11 (7-18) mg/dL Creatinine 0.69 (0.55-1.02) mg/dL Est Cr Clr Drug Dosing 88.53 mL/min Estimated GFR (MDRD) > 60 BUN/Creatinine Ratio 15.9 (No establ ref range) Glucose 217 H (70-99) mg/dL POC Glucose (70-99) mg/dL Calcium 8.3 L (8.5-10.1) mg/dL Total Bilirubin 0.5 (0.2-1.0) mg/dL AST 33 (15-37) U/L ALT 57 (14-59) U/L Alkaline Phosphatase 63 (46-116) U/L Total Protein 6.3 L (6.4-8.2) g/dL Albumin 3.2 L (3.4-5.0) g/dL Globulin 3.1 Albumin/Globulin Ratio 1.03 Med Orders - Current: Current Medications Acetaminophen (Acetaminophen 325 Mg Tab) 650 mg PO Q4H PRN PRN Reason: Pain (Mild 1-3)/fever Last Admin: 06/22/21 06:07 Dose: 650 mg Documented by: Aspirin (Aspirin 81 Mg Tab.Ec) 81 mg PO DAILY [facility] Last Admin: 06/21/21 09:06 Dose: 81 mg Documented by: Benzocaine/Menthol (Benzocaine/Cetylpyridinium/Menthol Lozenge) 1 lozenge MUCMEM Q2H PRN PRN Reason: Sore Throat Last Admin: 06/21/21 16:18 Dose: 1 lozenge Documented by: Dextrose/Water (50% Dextrose In Water 50 Ml Syringe) 50 ml IVPUSH Q15M PRN PRN Reason: Hypoglycemia Enoxaparin Sodium (Enoxaparin 40 Mg/0.4 Ml Syringe) 40 mg SUBCUT DAILY [facility] Last Admin: 06/21/21 09:08 Dose: 40 mg Documented by: Famotidine (Famotidine 20 Mg Tab) 20 mg PO BID [facility] Last Admin: 06/21/21 21:08 Dose: 20 mg Documented by: Glucagon (Glucagon,Human Recombinant 1 Mg Vial) 1 mg IM Q15M PRN PRN Reason: Hypoglycemia Sodium Chloride (Normal Saline) 1,000 mls @ 100 mls/hr IV ASDIRECTED [facility] Last Admin: 06/22/21 03:41 Dose: 100 mls/hr Documented by: Metronidazole 500 mg/ Premix 100 mls @ 100 mls/hr IV Q6H [facility] Last Admin: 06/22/21 01:46 Dose: 100 mls/hr Documented by: Insulin Human Lispro (Insulin Lispro 100 Units/Ml 3 Ml Vial) 0 unit SUBCUT Q6H [facility]; Protocol Last Admin: 06/22/21 03:07 Dose: 2 unit Documented by: Morphine Sulfate (Morphine 2 Mg/Ml Syringe) 1 mg IVPUSH Q4H PRN PRN Reason: Pain (severe 7-10) Non-Formulary Medication (Cetirizine [Zyrtec]) 10 mg PO DAILY [facility] Ondansetron HCl (Ondansetron 4 Mg/2 Ml Sdv) 4 mg IVPUSH Q4H PRN PRN Reason: Nausea/Vomiting Ramipril (Ramipril 5 Mg Cap) 15 mg PO DAILY [facility] Last Admin: 06/21/21 09:06 Dose: 15 mg Documented by: Rosuvastatin Calcium (Rosuvastatin 10 Mg Tab) 20 mg PO BEDTIME [facility] Last Admin: 06/21/21 21:08 Dose: 20 mg Documented by: Senna/Docusate Sodium (Docusate Sodium/Sennosides 50-8.6 Mg Tab) 2 tab PO BID [facility] Last Admin: 06/21/21 21:08 Dose: 2 tab Documented by: Sertraline HCl (Sertraline 50 Mg Tab) 50 mg PO DAILY [facility] Last Admin: 06/21/21 09:06 Dose: 50 mg Documented by: Sodium Chloride (Sodium Chloride 0.9% 10 Ml Syringe) 10 ml FLUSH ASDIRECTED PRN PRN Reason: Keep Vein Open Discontinued Medications Acetaminophen (Acetaminophen 500 Mg Tab) 1,000 mg PO ONETIME ONE Stop: 06/21/21 01:02 Last Admin: 06/21/21 01:21 Dose: 1,000 mg Documented by: Hydromorphone HCl (Hydromorphone 1 Mg/Ml Syringe) 1 mg IVPUSH ONETIME ONE Stop: 06/20/21 23:18 Last Admin: 06/20/21 23:27 Dose: 1 mg Documented by: Sodium Chloride (Normal Saline) 1,000 mls @ 999 mls/hr IV .BOLUS ONE Stop: 06/21/21 01:43 Last Admin: 06/21/21 00:47 Dose: 999 mls/hr Documented by: Iopamidol (Iopamidol 612 Mg/Ml 100 Ml Bottle) 100 ml IVPUSH ONETIME ONE Stop: 06/20/21 23:51 Last Admin: 06/21/21 00:02 Dose: 100 ml Documented by: Metoclopramide HCl (Metoclopramide 10 Mg/2 Ml Sdv) 10 mg IVPUSH ONETIME ONE Stop: 06/20/21 23:17 Last Admin: 06/20/21 23:27 Dose: 10 mg Documented by: - Exam General: Alert, Oriented HEENT: Pupils Equal, Pupils Reactive, EOMI, Mucous Membr. Moist/[place] Neck: Supple Lungs: Clear to Auscultation, Normal Respiratory Effort Cardiovascular: Regular Rate, Regular Rhythm GI/Abdominal Exam: Normal Bowel Sounds, Soft, Non-Tender, No Organomegaly, No Distention, No Abnormal Bruit, No Mass, Pelvis Stable Back Exam: Normal Inspection, Full Range of Motion Extremities: Normal Inspection, Normal Range of Motion, Non-Tender, No Pedal Edema, Normal Capillary Refill Peripheral Pulses: 2+: Carotid (L), Carotid (R), Brachial (L), Brachial (R), Radial (L), Radial (R), Femoral (L), Femoral (R), Popliteal (L), Popliteal (R), Posterior Tibial (L), Posterior Tibial (R), Dorsalis Pedis (L), Dorsalis Pedis (R) Skin: Warm, Dry, Intact Wound/Incisions: Healing Well Neurological: No New Focal Deficit Psy/Mental Status: Alert, Normal Affect, Normal Mood - Patient Data Lab Results Last 24 hrs: Laboratory Results - last 24 hr 06/21/21 06/21/21 06/21/21 Range/Units 06:10 09:18 15:20 WBC (5.0-10.0) 10^3/uL RBC (4.2-5.4) 10^6/uL Hgb (12.0-16.0) g/dL Hct (37.0-47.0) % MCV (80-100) fL MCH (27.0-34.0) pg MCHC (33.0-35.0) g/dL Plt Count (150-450) 10^3/uL Neut % (Auto) (42.2-75.2) % Lymph % (Auto) (20.5-50.1) % [place] % (Auto) (2-8) % Eos % (Auto) (1.0-3.0) % Baso % (Auto) (0.0-1.0) % PT 11.0 (9.0-12.0) SEC INR 1.1 (0.9-1.2) Sodium (136-145) mmol/L Potassium (3.5-5.1) mmol/L Chloride (98-107) mmol/L Carbon Dioxide (21-32) mmol/L Anion Gap (7-13) mEq/L BUN (7-18) mg/dL Creatinine (0.55-1.02) mg/dL Est Cr Clr Drug Dosing mL/min Estimated GFR (MDRD) BUN/Creatinine Ratio (No establ ref range) Glucose (70-99) mg/dL POC Glucose 196 H 156 H (70-99) mg/dL Calcium (8.5-10.1) mg/dL Total Bilirubin (0.2-1.0) mg/dL AST (15-37) U/L ALT (14-59) U/L Alkaline Phosphatase (46-116) U/L Total Protein (6.4-8.2) g/dL Albumin (3.4-5.0) g/dL Globulin Albumin/Globulin Ratio 06/21/21 06/22/21 06/22/21 Range/Units 21:05 03:03 05:40 WBC 9.2 (5.0-10.0) 10^3/uL RBC 4.29 (4.2-5.4) 10^6/uL Hgb 12.8 (12.0-16.0) g/dL Hct 39.3 (37.0-47.0) % MCV 91.6 (80-100) fL MCH 29.8 (27.0-34.0) pg MCHC 32.6 L (33.0-35.0) g/dL Plt Count 200 (150-450) 10^3/uL Neut % (Auto) 62.4 (42.2-75.2) % Lymph % (Auto) 24.0 (20.5-50.1) % [place] % (Auto) 11.8 H (2-8) % Eos % (Auto) 1.7 (1.0-3.0) % Baso % (Auto) 0.1 (0.0-1.0) % PT (9.0-12.0) SEC INR (0.9-1.2) Sodium (136-145) mmol/L Potassium (3.5-5.1) mmol/L Chloride (98-107) mmol/L Carbon Dioxide (21-32) mmol/L Anion Gap (7-13) mEq/L BUN (7-18) mg/dL Creatinine (0.55-1.02) mg/dL Est Cr Clr Drug Dosing mL/min Estimated GFR (MDRD) BUN/Creatinine Ratio (No establ ref range) Glucose (70-99) mg/dL POC Glucose 197 H 216 H (70-99) mg/dL Calcium (8.5-10.1) mg/dL Total Bilirubin (0.2-1.0) mg/dL AST (15-37) U/L ALT (14-59) U/L Alkaline Phosphatase (46-116) U/L Total Protein (6.4-8.2) g/dL Albumin (3.4-5.0) g/dL Globulin Albumin/Globulin Ratio // Range/Units 05:40 WBC (5.0-10.0) 10^3/uL RBC (4.2-5.4) 10^6/uL Hgb (12.0-16.0) g/dL Hct (37.0-47.0) % MCV (80-100) fL MCH (27.0-34.0) pg MCHC (33.0-35.0) g/dL Plt Count (150-450) 10^3/uL Neut % (Auto) (42.2-75.2) % Lymph % (Auto) (20.5-50.1) % [place] % (Auto) (2-8) % Eos % (Auto) (1.0-3.0) % Baso % (Auto) (0.0-1.0) % PT (9.0-12.0) SEC INR (0.9-1.2) Sodium 140 (136-145) mmol/L Potassium 4.0 (3.5-5.1) mmol/L Chloride 104 (98-107) mmol/L Carbon Dioxide 29 (21-32) mmol/L Anion Gap 11.0 (7-13) mEq/L BUN 11 (7-18) mg/dL Creatinine 0.69 (0.55-1.02) mg/dL Est Cr Clr Drug Dosing 88.53 mL/min Estimated GFR (MDRD) > 60 BUN/Creatinine Ratio 15.9 (No establ ref range) Glucose 217 H (70-99) mg/dL POC Glucose (70-99) mg/dL Calcium 8.3 L (8.5-10.1) mg/dL Total Bilirubin 0.5 (0.2-1.0) mg/dL AST 33 (15-37) U/L ALT 57 (14-59) U/L Alkaline Phosphatase 63 (46-116) U/L Total Protein 6.3 L (6.4-8.2) g/dL Albumin 3.2 L (3.4-5.0) g/dL Globulin 3.1 Albumin/Globulin Ratio 1.03 Result Diagrams: 06/22/21 05:40 06/22/21 05:40 Sepsis Event Note - Evaluation Sepsis Screening Result: No Definite Risk - Focused Exam Vital Signs: Vital Signs Temp Pulse Resp BP Pulse Ox 06/22/21 04:00 98.8 F 68 16 128/64 94 L 06/22/21 00:00 98.4 F 70 16 126/58 L 95 06/21/21 20:00 98 F 68 16 130/60 94 L - Problem List Review Problem List Initiated/Reviewed/Updated: Yes - My Orders Last 24 Hours: My Active Orders 06/21/21 Breakfast Nothing per Oral Now Diet [DIET] 06/21/21 08:00 metroNIDAZOLE/Normal Saline [Flagyl in NS 500 MG/100 ML] 500 mg Premix Bag 100 bag IV Q6H 06/21/21 08:28 Communication Order [RC] 06/21/21 09:00 Aspirin [Halfprin] 81 mg PO DAILY Cetirizine [ZyrTEC] 10 mg PO DAILY Docusate Sodium/Sennosides [Senna Plus] 2 tab PO BID Enoxaparin [Lovenox] 40 mg SUBCUT DAILY Famotidine [Pepcid] 20 mg PO BID Sertraline [Zoloft] 50 mg PO DAILY ramipriL [Altace] 15 mg PO DAILY 06/21/21 16:01 Benzocaine/Cetylpyrd/Menthol [Cepacol Sore Throat] 1 lozenge MUCMEM Q2H PRN 06/21/21 21:00 Rosuvastatin [Crestor] 20 mg PO BEDTIME 06/22/21 09:00 Magnesium Hydroxide [Milk of Magnesia] 30 ml PO BID - Plan Plan:: Surgical History: Left elbow surgery, wisdom tooth extraction, sinus surgery, tonsillectomy, hysterectomy, patient has previous documentation of tubal ligation which she denies, previous cholecystectomy however imaging studies are equivocal as to whether this actually occurred Family History: Cancer, stroke, diabetes, coronary artery disease, hypertension, hyperlipidemia Social History: Tobacco: Never Alcohol: Denies Caffeine: Coffee, cola, tea Drugs: Never Allergies: Glipizide Code Status: Full Assessment / Plan: Query ileus. N.p.o. Nasogastric tube set to low intermittent suction. Senna +2 tabs p.o. twice daily plus milk of magnesia 30 mils p.o. twice daily with nasogastric tube suction being held for 45 minutes after administration plus IV normal saline 100 mL/h Diarrhea. IV normal saline 100 mL/h plus Flagyl 500 mg IV every 6 hours. Check stool C. difficile, stool WBC, stool culture, stool ova and parasites Chronic pain Arthritis Seasonal allergies. Zyrtec 10 mg p.o. daily Depression. Zoloft 50 mg p.o. daily Transaminitis. 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 Will check fasting glucose every 6 hours and provide insulin sliding scale GERD. Pepcid 20 mg p.o. twice daily Hyperlipidemia. Crestor 20 mg p.o. nightly Hypertension. Ramipril 15 mg p.o. daily Obesity. Patient will be counseled regarding lifestyle modification Osteoporosis Anxiety DVT prophylaxis. Lovenox 40 mg subcutaneously daily Disposition: Anticipate discharge within in 24 hours and/or when patient resumed having regular bowel movements and/or when they get nasogastric tube output is minimal END OF DOCTOR EMAMIS HISTORY AND PHYSICAL / CONSULTATION NOTE
[2021-06-22] MEDS: Sertraline 50 MG Tab PO SCH (09:11)
[2021-06-22] MEDS: Ramipril 5 MG Cap PO SCH (09:11)
[2021-06-22] MEDS: Aspirin 81 MG Tab.EC PO SCH (09:11)
[2021-06-22] MEDS: Famotidine 20 MG Tab PO SCH ×2 (09:12→21:04)
[2021-06-22] MEDS: Enoxaparin 40 MG/0.4 ML Syringe SUBCUT SCH (09:13)
[2021-06-22] MEDS: Magnesium Hydroxide 400 MG/5 ML Susp 30 ML Cup PO SCH ×2 (09:13→21:05)
--- NOTE | 2021-06-22 10:00 | CR ---
PROCEDURE INFORMATION: Exam: XR Abdomen Exam date and time: 06/22/2021 8:43 AM Age: 55 years old Clinical indication: Device placement; Gi device; Nasogastric tube; Additional info: Ng placement TECHNIQUE: Imaging protocol: XR of the abdomen. Views: Frontal supine view of the abdomen. 1 View. COMPARISON: CR Abdomen 1V Upright 06/21/2021 2:51 AM FINDINGS: Tubes, catheters and devices: Feeding tube terminates in the distal esophagus. Gastrointestinal tract: Normal. No bowel dilation. Organs: Status post cholecystectomy. Bones/joints: Unremarkable. IMPRESSION: Feeding tube terminates in the distal esophagus. Recommend advancing tube at 5-10 cm.
--- NOTE | 2021-06-22 14:40 | CR ---
EXAMINATION: Abdomen 1V Flat SEX: Female AGE: 55 years CLINICAL HISTORY: 55-year-old female with nasogastric tube. Placement? Interpretation: Distal end of the NG tube has been advanced since comparison film 0844 hours earlier today. Tip of the tube now lies in the LUQ, presumably through GE junction and just into fundus of the stomach. Lung bases clear. Nonspecific bowel pattern. No free intraperitoneal air. Surgical clips RUQ. CONCLUSION: Advancement tip of NG tube from distal esophagus into fundus of stomach.
[2021-06-22] MEDS: Ondansetron 4 MG/2 ML SDV IVPUSH PRN (20:13)
[2021-06-22] MEDS: Rosuvastatin 10 MG Tab PO SCH (21:04)
[2021-06-23] MEDS: Sodium Chloride 0.9% 1,000 ML IV SCH ×2 (02:08→15:56)
[2021-06-23] MEDS: metroNIDAZOLE/Normal Saline 500 MG in Premix Bag 100 BAG IV SCH ×4 (02:09→20:49)
[2021-06-23] MEDS: Insulin Lispro 100 Units/ML 3 ML Vial SUBCUT SCH ×4 (03:26→21:08)
--- NOTE | 2021-06-23 07:30 | PCM.PN ---
- General Info Date of Service: 06/23/21 Subjective Update: The patient endorses no complaints at this time. She denies fever, rigors, nausea, vomiting, cough, wheeze, abdominal pain, chest pain, lightheadedness, dizziness, or any other constitutional complaints. I explained to the patient her current medical condition and plan of care and I have answered all of her questions. Per the patient and nursing staff patient has not not had a bowel movement overnight. Nasogastric tube output approximately 600 mL overnight - Review of Systems General: Reports: No Symptoms HEENT: Reports: No Symptoms Pulmonary: Reports: No Symptoms Cardiovascular: Reports: No Symptoms Gastrointestinal: Reports: No Symptoms Genitourinary: Reports: No Symptoms Musculoskeletal: Reports: No Symptoms Skin: Reports: No Symptoms Neurological: Reports: No Symptoms Psychiatric: Reports: No Symptoms - Patient Data Vitals - Most Recent: Last Vital Signs Temp 98 F 06/23/21 03:30 Pulse 60 06/23/21 03:30 Resp 20 06/23/21 03:30 BP 137/67 06/23/21 03:30 Pulse Ox 93 L 06/23/21 03:30 Weight - Most Recent: 187 lb 12.8 oz I&O - Last 24 Hours: Intake & Output 06/22/21 06/23/21 06/23/21 22:59 06:59 14:59 Intake Total 100 1536 Output Total 1300 600 Balance -1200 936 Lab Results Last 24 Hours: Laboratory Results - last 24 hr 06/22/21 06/22/21 06/22/21 Range/Units 09:08 15:23 21:13 POC Glucose 225 H 190 H 195 H (70-99) mg/dL 06/23/21 Range/Units 03:20 POC Glucose 193 H (70-99) mg/dL Med Orders - Current: Current Medications Acetaminophen (Acetaminophen 325 Mg Tab) 650 mg PO Q4H PRN PRN Reason: Pain (Mild 1-3)/fever Last Admin: 06/22/21 21:02 Dose: 650 mg Documented by: Aspirin (Aspirin 81 Mg Tab.Ec) 81 mg PO DAILY [facility] Last Admin: 06/22/21 09:11 Dose: 81 mg Documented by: Benzocaine/Menthol (Benzocaine/Cetylpyridinium/Menthol Lozenge) 1 lozenge MUCMEM Q2H PRN PRN Reason: Sore Throat Last Admin: 06/21/21 16:18 Dose: 1 lozenge Documented by: Dextrose/Water (50% Dextrose In Water 50 Ml Syringe) 50 ml IVPUSH Q15M PRN PRN Reason: Hypoglycemia Enoxaparin Sodium (Enoxaparin 40 Mg/0.4 Ml Syringe) 40 mg SUBCUT DAILY [facility] Last Admin: 06/22/21 09:13 Dose: 40 mg Documented by: Famotidine (Famotidine 20 Mg Tab) 20 mg PO BID [facility] Last Admin: 06/22/21 21:04 Dose: 20 mg Documented by: Glucagon (Glucagon,Human Recombinant 1 Mg Vial) 1 mg IM Q15M PRN PRN Reason: Hypoglycemia Sodium Chloride (Normal Saline) 1,000 mls @ 100 mls/hr IV ASDIRECTED [facility] Last Admin: 06/23/21 02:08 Dose: 100 mls/hr Documented by: Metronidazole 500 mg/ Premix 100 mls @ 100 mls/hr IV Q6H [facility] Last Infusion: 06/23/21 03:16 Dose: Infused Documented by: Insulin Human Lispro (Insulin Lispro 100 Units/Ml 3 Ml Vial) 0 unit SUBCUT Q6H [facility]; Protocol Last Admin: 06/23/21 03:26 Dose: 1 unit Documented by: Magnesium Hydroxide (Magnesium Hydroxide 400 Mg/5 Ml Susp 30 Ml Cup) 30 ml PO BID [facility] Last Admin: 06/22/21 21:05 Dose: 30 ml Documented by: Morphine Sulfate (Morphine 2 Mg/Ml Syringe) 1 mg IVPUSH Q4H PRN PRN Reason: Pain (severe 7-10) Non-Formulary Medication (Cetirizine [Zyrtec]) 10 mg PO DAILY [facility] Ondansetron HCl (Ondansetron 4 Mg/2 Ml Sdv) 4 mg IVPUSH Q4H PRN PRN Reason: Nausea/Vomiting Last Admin: 06/22/21 20:13 Dose: 4 mg Documented by: Ramipril (Ramipril 5 Mg Cap) 15 mg PO DAILY [facility] Last Admin: 06/22/21 09:11 Dose: 15 mg Documented by: Rosuvastatin Calcium (Rosuvastatin 10 Mg Tab) 20 mg PO BEDTIME [facility] Last Admin: 06/22/21 21:04 Dose: 20 mg Documented by: Senna/Docusate Sodium (Docusate Sodium/Sennosides 50-8.6 Mg Tab) 2 tab PO BID [facility] Last Admin: 06/22/21 21:05 Dose: 2 tab Documented by: Sertraline HCl (Sertraline 50 Mg Tab) 50 mg PO DAILY [facility] Last Admin: 06/22/21 09:11 Dose: 50 mg Documented by: Sodium Chloride (Sodium Chloride 0.9% 10 Ml Syringe) 10 ml FLUSH ASDIRECTED PRN PRN Reason: Keep Vein Open Discontinued Medications Acetaminophen (Acetaminophen 500 Mg Tab) 1,000 mg PO ONETIME ONE Stop: 06/21/21 01:02 Last Admin: 06/21/21 01:21 Dose: 1,000 mg Documented by: Benzocaine/Menthol (Benzocaine/Cetylpyridinium/Menthol Lozenge) 1 lozenge MUCMEM .STK-MED ONE Stop: 06/21/21 02:35 Hydromorphone HCl (Hydromorphone 1 Mg/Ml Syringe) 1 mg IVPUSH ONETIME ONE Stop: 06/20/21 23:18 Last Admin: 06/20/21 23:27 Dose: 1 mg Documented by: Sodium Chloride (Normal Saline) 1,000 mls @ 999 mls/hr IV .BOLUS ONE Stop: 06/21/21 01:43 Last Admin: 06/21/21 00:47 Dose: 999 mls/hr Documented by: Iopamidol (Iopamidol 612 Mg/Ml 100 Ml Bottle) 100 ml IVPUSH ONETIME ONE Stop: 06/20/21 23:51 Last Admin: 06/21/21 00:02 Dose: 100 ml Documented by: Metoclopramide HCl (Metoclopramide 10 Mg/2 Ml Sdv) 10 mg IVPUSH ONETIME ONE Stop: 06/20/21 23:17 Last Admin: 06/20/21 23:27 Dose: 10 mg Documented by: - Exam General: Alert, Oriented HEENT: Pupils Equal, Pupils Reactive, EOMI, Mucous Membr. Moist/[place] Neck: Supple Lungs: Clear to Auscultation, Normal Respiratory Effort Cardiovascular: Regular Rate, Regular Rhythm GI/Abdominal Exam: Normal Bowel Sounds, Soft, Non-Tender, No Organomegaly, No Di stention, No Abnormal Bruit, No Mass, Pelvis Stable Back Exam: Normal Inspection, Full Range of Motion Extremities: Normal Inspection, Normal Range of Motion, Non-Tender, No Pedal Edema, Normal Capillary Refill Peripheral Pulses: 2+: Carotid (L), Carotid (R), Brachial (L), Brachial (R), Radial (L), Radial (R), Femoral (L), Femoral (R), Popliteal (L), Popliteal (R), Posterior Tibial (L), Posterior Tibial (R), Dorsalis Pedis (L), Dorsalis Pedis (R) Skin: Warm, Dry, Intact Wound/Incisions: Healing Well Neurological: No New Focal Deficit Psy/Mental Status: Alert, Normal Affect, Normal Mood - Patient Data Lab Results Last 24 hrs: Laboratory Results - last 24 hr 06/22/21 06/22/21 06/22/21 Range/Units 09:08 15:23 21:13 POC Glucose 225 H 190 H 195 H (70-99) mg/dL 06/23/21 Range/Units 03:20 POC Glucose 193 H (70-99) mg/dL Result Diagrams: 06/22/21 05:40 06/22/21 05:40 Sepsis Event Note - Evaluation Sepsis Screening Result: No Definite Risk - Focused Exam Vital Signs: Vital Signs Temp Pulse Resp BP Pulse Ox 06/23/21 03:30 98 F 60 20 137/67 93 L 06/22/21 23:30 98 F 64 20 143/70 H 92 L 06/22/21 19:30 98 F 60 20 161/74 H 96 - Problem List Review Problem List Initiated/Reviewed/Updated: Yes - My Orders Last 24 Hours: My Active Orders 06/22/21 09:00 Magnesium Hydroxide [Milk of Magnesia] 30 ml PO BID 06/24/21 05:00 BASIC METABOLIC PANEL,BMP [CHEM] Routine - Plan Plan:: Surgical History: Left elbow surgery, wisdom tooth extraction, sinus surgery, tonsillectomy, hysterectomy, patient has previous documentation of tubal ligation which she denies, previous cholecystectomy however imaging studies are equivocal as to whether this actually occurred Family History: Cancer, stroke, diabetes, coronary artery disease, hypertension, hyperlipidemia Social History: Tobacco: Never Alcohol: Denies Caffeine: Coffee, cola, tea Drugs: Never Allergies: Glipizide Code Status: Full Assessment / Plan: Query ileus. N.p.o. Nasogastric tube set to low intermittent suction. Senna +2 tabs p.o. twice daily plus milk of magnesia 30 mils p.o. twice daily with nasogastric tube suction being held for 45 minutes after administration plus IV normal saline 100 mL/h Diarrhea. IV normal saline 100 mL/h plus Flagyl 500 mg IV every 6 hours. Check stool C. difficile, stool WBC, stool culture, stool ova and parasites Chronic pain Arthritis Seasonal allergies. Zyrtec 10 mg p.o. daily Depression. Zoloft 50 mg p.o. daily Transaminitis. 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 Will check fasting glucose every 6 hours and provide insulin sliding scale GERD. Pepcid 20 mg p.o. twice daily Hyperlipidemia. Crestor 20 mg p.o. nightly Hypertension. Ramipril 15 mg p.o. daily Obesity. Patient will be counseled regarding lifestyle modification Osteoporosis Anxiety DVT prophylaxis. Lovenox 40 mg subcutaneously daily Disposition: Anticipate discharge within in 24 hours and/or when patient resumed having regular bowel movements and/or when they get nasogastric tube output is minimal END OF DOCTOR EMAMIS HISTORY AND PHYSICAL / CONSULTATION NOTE
[2021-06-23] MEDS: Sertraline 50 MG Tab PO SCH (09:28)
[2021-06-23] MEDS: Magnesium Hydroxide 400 MG/5 ML Susp 30 ML Cup PO SCH ×2 (09:28→20:55)
[2021-06-23] MEDS: Ramipril 5 MG Cap PO SCH (09:29)
[2021-06-23] MEDS: Enoxaparin 40 MG/0.4 ML Syringe SUBCUT SCH (09:29)
[2021-06-23] MEDS: Aspirin 81 MG Tab.EC PO SCH (09:36)
[2021-06-23] MEDS: Famotidine 20 MG Tab PO SCH ×2 (09:36→20:55)
[2021-06-23] MEDS: Non-Formulary Medication 1 Each (Cetirizine [Zyrtec] 10 MG Tablet) PO SCH ×2 (09:55→10:40)
[2021-06-23] MEDS: Benzocaine 20% Topical Spray UD MUCMEM PRN ×2 (10:00→14:54)
[2021-06-23] MEDS: Loratadine 10 MG Tab PO SCH (10:06)
[2021-06-23] MEDS: Benzocaine/Cetylpyridinium/Menthol Lozenge MUCMEM PRN (11:11)
[2021-06-23] MEDS: Morphine 2 MG/ML SYRINGE IVPUSH PRN ×2 (14:48→20:44)
[2021-06-23] MEDS: Acetaminophen 325 MG Tab PO PRN (14:50)
[2021-06-23] MEDS: Rosuvastatin 10 MG Tab PO SCH (20:55)
[2021-06-23] MEDS: Ondansetron 4 MG/2 ML SDV IVPUSH PRN (21:14)
[2021-06-24] MEDS: metroNIDAZOLE/Normal Saline 500 MG in Premix Bag 100 BAG IV SCH ×3 (02:10→15:15)
[2021-06-24] MEDS: Insulin Lispro 100 Units/ML 3 ML Vial SUBCUT SCH ×2 (03:14→09:02)
[2021-06-24] MEDS: Sodium Chloride 0.9% 1,000 ML IV SCH (05:23)
--- NOTE | 2021-06-24 07:39 | PCM.SN.2 ---
- Free Text/Narrative Note: START OF DOCTOR EMAMIS PROGRESS NOTE Subjective: The patient states that overnight she experienced dyspepsia as well as an episode of nausea. Aside from that she endorses no complaints. She denies fever, rigors, vomiting, cough, wheeze, abdominal pain, chest pain. I explained to the patient her current medical condition and plan of care and I have answered all of her questions Objective: General: -Alert -No acute distress -No dyspnea -No tachypnea -Obese Heart: -iRegular rate -Regular rhythm -No murmurs -No gallops -No rubs Lungs: -No wheeze -No rhonchi -No rales Abdomen: -Normal bowel sounds in all four quadrants -No rebound -No guarding -No tenderness Extremities: -2/4 pulse in all four extremities -No clubbing -No cyanosis -No edema Additional Details / Additional Findings / Exceptions / Miscellaneous: Pertinent Laboratory Results / Pertinent Radiology Results / Pertinent Diagnosti c Results / Pertinent Vital Signs: Heart rate 51 bpm. Morning labs pending Assessment / Plan: Query ileus. N.p.o. Nasogastric tube set to low intermittent suction. Senna +2 tabs p.o. twice daily plus milk of magnesia 30 mils p.o. twice daily with nasogastric tube suction being held for 45 minutes after administration plus IV normal saline 100 mL/h Diarrhea. IV normal saline 100 mL/h plus Flagyl 500 mg IV every 6 hours. Check stool C. difficile, stool WBC, stool culture, stool ova and parasites Chronic pain Arthritis Seasonal allergies. Claritin 10 mg p.o. daily Depression. Zoloft 50 mg p.o. daily Transaminitis. 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 Will check fasting glucose every 6 hours and provide insulin sliding scale GERD. Pepcid 20 mg p.o. twice daily Hyperlipidemia. Crestor 20 mg p.o. nightly Hypertension. Ramipril 15 mg p.o. daily Obesity. Patient will be counseled regarding lifestyle modification Osteoporosis Anxiety DVT prophylaxis. Lovenox 40 mg subcutaneously daily Disposition: The patient may potentially be a candidate for discharge on this day of June 18, 2021. Will check KUB and likely remove nasogastric tube and feed the patient. If she is able to tolerate food without pain, she will be discharged END OF DOCTOR EMAMIS PROGRESS NOTE
[2021-06-24 09:00] LABS: ANION GAP 13.9 mEq/L (7-13); CHLORIDE,CL 105 mmol/L (98-107); SODIUM,NA 141 mmol/L (136-145)
[2021-06-24] MEDS: Ramipril 5 MG Cap PO SCH (09:03)
[2021-06-24] MEDS: Loratadine 10 MG Tab PO SCH (09:03)
[2021-06-24] MEDS: Aspirin 81 MG Tab.EC PO SCH (09:04)
[2021-06-24] MEDS: Sertraline 50 MG Tab PO SCH (09:04)
[2021-06-24] MEDS: Famotidine 20 MG Tab PO SCH (09:04)
[2021-06-24] MEDS: Enoxaparin 40 MG/0.4 ML Syringe SUBCUT SCH (09:05)
[2021-06-24] MEDS: Magnesium Hydroxide 400 MG/5 ML Susp 30 ML Cup PO SCH (09:05)
--- NOTE | 2021-06-24 09:46 | CR ---
PROCEDURE INFORMATION: Exam: XR Abdomen Exam date and time: 06/24/2021 8:14 AM Age: 55 years old Clinical indication: Other: Ilius; Additional info: Ileus TECHNIQUE: Imaging protocol: XR of the abdomen. Views: Frontal supine view of the abdomen. 1 View. COMPARISON: CR Abdomen 1V Flat 06/22/2021 2:16 PM FINDINGS: Tubes, catheters and devices: Enteric tube with tip in the proximal stomach. Electrode pack projects over the right low pelvis. Gastrointestinal tract: Gas in normal caliber loops of bowel. Multiple air-fluid levels on the upright film Intraperitoneal space: Surgical clips in the right upper quadrant. Bones/joints: Unremarkable. IMPRESSION: Enteric tube with tip in the proximal stomach. Gas in normal caliber loops of bowel with multiple air-fluid levels on the upright film
[2021-06-24] MEDS ORDERED: Glucagon,Human Recombinant 1 MG Vial IM PRN (10:06)
[2021-06-24] MEDS ORDERED: 50% Dextrose in Water 50 ML Syringe IVPUSH PRN (10:06)
[2021-06-24] MEDS ORDERED: Insulin Lispro 100 Units/ML 3 ML Vial SUBCUT SCH (12:00)
[2021-06-24 13:59] VITALS: BP 131/62; PULSE 63
--- NOTE | 2021-06-24 14:11 | PCM.SN.2 ---
- Free Text/Narrative Note: START OF DOCTOR EMAMIS DISCHARGE SUMMARY Date of Admission: June 21, 2021 Date of Discharge: 2:11 PM on June 24, 2021 Primary Diagnosis: Ileus, resolved Secondary Diagnosis: Purported diarrhea Chronic pain Arthritis Seasonal allergies Depression Transaminitis Pritchard with fibrosis IBS History vitamin D deficiency Diabetes GERD Hyperlipidemia Hypertension Obesity Osteoporosis Anxiety Consultations: None Condition on Discharge: Fair Disposition: The patient will be vies follow-up with her primary care physician or with a provider as needed Discharge Medications: Aspirin 81 mg p.o. daily Zyrtec 10 mg p.o. daily Senna plus: 2 tabs p.o. twice daily Pepcid 20 mg p.o. twice daily Magnesium hydroxide 30 mL p.o. twice daily Zoloft 75 mg p.o. daily Ramipril 15 mg p.o. daily Zofran 4 mg p.o. every 12 hours as needed nausea/vomiting Metformin 1000 g p.o. twice daily Victoza 1.8 mg subcutaneously daily Insulin NovoLog 70/30: 45 units subcutaneously daily and 50 units of insulin nightly Farxiga 5 mg p.o. daily Vitamin D 2000 IU p.o. daily Vitamin C 100 g p.o. daily Crestor 10 mg p.o. nightly Flagyl 500 mg p.o. every 8 hours. Quantity 18. 0 refills END OF DOCTOR EMAMIS DISCHARGE SUMMARY
== END 2021-06-24 15:00 | disposition home or self-care (01) | DRG 390 ==
LOC: DL.ED 22:58 → DL.MS 06-21 02:33 → OBSVTOIN 06-23 08:49
PROVIDERS: ADMIT Internal Medicine; ATTEND Internal Medicine
DX: K56.7 Ileus, unspecified (principal); R19.7 Diarrhea, unspecified; G89.29 Other chronic pain; F32.9 Major depressive disorder, single episode, unspecified; J30.2 Other seasonal allergic rhinitis; E11.9 Type 2 diabetes mellitus without complications; K21.9 Gastro-esophageal reflux disease without esophagitis; E78.5 Hyperlipidemia, unspecified; I10 Essential (primary) hypertension; M81.0 Age-related osteoporosis without current pathological fracture; F41.9 Anxiety disorder, unspecified; E66.9 Obesity, unspecified; K75.81 Nonalcoholic steatohepatitis (NASH); K58.0 Irritable bowel syndrome with diarrhea; Z20.822 Contact with and (suspected) exposure to COVID-19; Z98.890 Other specified postprocedural states; Z68.29 Body mass index [BMI] 29.0-29.9, adult; Z90.89 Acquired absence of other organs; Z90.710 Acquired absence of both cervix and uterus; Z90.49 Acquired absence of other specified parts of digestive tract; Z79.4 Long term (current) use of insulin; Z98.51 Tubal ligation status; Z86.010 Personal history of colon polyps; Z97.3 Presence of spectacles and contact lenses
CPT/HCPCS: 36415; 43752; 74018; 74177; 80048; 80053; 80305-QW; 80307; 81003; 82009; 82150; 82947; 83605; 83690; 83735; 85025; 85610; 86140; 87045; 87046; 87328; 87329; 87493; 87899; 96374; 96375; 99285-25; A9270-GY; J1170; J1650; J1815-GY; J2270; J2405; J2765; J3490; J7030; Q9967; U0002

== ENCOUNTER 2021-08-04 15:55 | Emergency (ER) | payer OTHER ==
[2021-08-04] MEDS ORDERED: Sodium Chloride 0.9% 10 ML Syringe FLUSH PRN (18:17)
[2021-08-04] MEDS ORDERED: HYDROmorphone 0.5 MG/0.5 ML Syringe IVPUSH ONE (18:19)
[2021-08-04] MEDS ORDERED: Ondansetron 4 MG/2 ML SDV IVPUSH ONE ×2 (18:19→23:14)
--- NOTE | 2021-08-04 18:38 | EDM.PDOC ---
<Garret Gomez Wilian - Last Filed: 08/04/21 19:02> ED HPI GENERAL MEDICAL PROBLEM - General Chief Complaint: Gastrointestinal Problem Stated Complaint: HAVING INTESTINAL PROBLEMS Time Seen by Provider: 08/04/21 18:10 Source of Information: Reports: Patient History Limitations: Reports: No Limitations - History of Present Illness INITIAL COMMENTS - FREE TEXT/NARRATIVE: 55 y/o F c/o nvd abd pn since 11 am this morning. She states it feels like the last time she had a bowel obstruction on Jun 20. Pt was admitted for several days Jun 20 for treatment of bowel obstruction which was relieved non surgically with an ng tube placement. Hx of GI problems which began in March at which time the pt was evaluated at [facility] for bloating and abd pn. Pt states she was daignosed with a sensitive stomach. Today pt reports 4 bowel movements of diarrhea with no blood. She states multiple episodes of vomiting dark bile colored emesis. She denies fever, cough, chills, drugs, etoh, cp, flank pn, db, diff voiding, extremity pn. Onset: Today Duration: Hour(s): Location: Reports: Abdomen Quality: Reports: Sharp Severity: Moderate Improves with: Reports: None Worsens with: Reports: Movement Abdominal Pain Score (Numeric/FACES): 7 - Related Data Allergies Allergy/AdvReac Type Severity Reaction Status Date / Time glyburide AdvReac Intermediate Confusion Verified 08/04/21 17:05 Home Meds: Home Meds Aspirin [Halfprin] 81 mg PO DAILY 11/01/13 [History] Cetirizine [ZyrTEC] 10 mg PO DAILY 06/15/20 [History] Cholecalciferol (Vitamin D3) [Vitamin D3] 2,000 units PO DAILY 06/15/20 [History] Dapagliflozin Propanediol [Farxiga] 5 mg PO DAILY 06/15/20 [History] Rosuvastatin Calcium 10 mg PO BEDTIME 10/20/20 [History] Famotidine 20 mg PO BID 06/20/21 [History] Ondansetron [Zofran ODT] 4 mg PO Q12H PRN 06/20/21 [History] Insuln Asp Prot/Insulin Aspart [NovoLOG Mix 70-30] 45 units SUBCUT DAILY 06/21/21 [History] Insuln Asp Prot/Insulin Aspart [NovoLOG Mix 70-30] 50 units SUBCUT .EVENING 06/21/21 [History] Liraglutide [Victoza 2-[place]] 1.8 mg SQ DAILY 06/21/21 [History] Ramipril [Altace] 15 mg PO DAILY 06/21/21 [History] Sertraline [Zoloft] 75 mg PO DAILY 06/21/21 [History] metFORMIN HCl [Metformin HCl] 1,000 mg PO BIDMEALS 06/21/21 [History] Magnesium Hydroxide [Milk of Magnesia] 30 ml PO BID 30 Days #1800 ml 06/24/21 [Rx] metroNIDAZOLE [Flagyl] 500 mg PO Q8H 6 Days #18 tab 06/24/21 [Rx] Ascorbic Acid [Vitamin C] 100 mg PO DAILY 08/04/21 [History] Magnesium Glycinate [Magnesium Bisglycinate Chelate] 200 mg PO DAILY 08/04/21 [History] Nortriptyline 10 mg PO BEDTIME 08/04/21 [History] Sennosides/Docusate Sodium [Senna-S 8.6-50 mg Tablet] 2 tab PO DAILY 08/04/21 [History] Sodium Chloride 600 mg PO DAILY 08/04/21 [History] Past Medical History HEENT History: Reports: Impaired Vision, Other (See Below) Other HEENT History: WEARS GLASSES Cardiovascular History: Reports: High Cholesterol, Hypertension Respiratory History: Reports: None Gastrointestinal History: Reports: Colon Polyp, GERD, Irritable Bowel Syndrome, Other (See Below) Other Gastrointestinal History: NONALCOHOLIC STEATOHEPATITIS WITH FIBROSIS. 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 (See Below) Other MACHINE OPERATOR GENERAL History: Hysterectomy Musculoskeletal History: Reports: Arthritis, Back Pain, Chronic, Osteoporosis, Other (See Below) Other Musculoskeletal History: right shoulder Neurological History: Reports: None Psychiatric History: Reports: Anxiety, Depression Endocrine/Metabolic History: Reports: Diabetes, Type II, Obesity/BMI 30+, Osteoporosis, Vitamin D Deficiency Hematologic History: Reports: Blood Transfusion(s) Immunologic History: Reports: None Oncologic (Cancer) History: Reports: None Dermatologic History: Reports: Other (See Below) Other Dermatologic History: HX OF ACTINIC DERMATITIS - Infectious Disease History Infectious Disease History: Reports: Chicken Pox, Hepatitis non A,B,C, Measles, Mumps - Past Surgical History Head Surgeries/Procedures: Reports: None HEENT Surgical History: Reports: Naso-Sinus Surgery, Oral Surgery, Tonsillectomy Cardiovascular Surgical History: Reports: None Respiratory Surgical History: Reports: None GI Surgical History: Reports: Cholecystectomy, Colonoscopy, EGD, Polypectomy Other GI Surgeries/Procedures: Hx of colon polyp. Female Surgical History: Reports: Hysterectomy, Salpingo-Oophorectomy, Tubal Ligation Endocrine Surgical History: Reports: None Neurological Surgical History: Reports: None Musculoskeletal Surgical History: Reports: Other (See Below) Other Musculoskeletal Surgeries/Procedures:: LEFT ELBOW SURGERY, MOVED TENDON Oncologic Surgical History: Reports: None Dermatological Surgical History: Reports: None Social & Family History - Family History Family Medical History: No Pertinent Family History - Tobacco Use Tobacco Use Status *Q: Never Tobacco User Second Hand Smoke Exposure: No - Caffeine Use Caffeine Use: Reports: Coffee, Soda Other Caffeine Use: COFFEE 12OZ DAILY. TEA 30-40 OZ - Recreational Drug Use Recreational Drug Use: No - Living Situation & Occupation Living situation: Reports: Occupation: Employed ED ROS GENERAL - Review of Systems Review Of Systems: Comprehensive ROS is negative, except as noted in HPI. ED EXAM, GI/ABD - Physical Exam Exam: See Below Exam Limited By: No Limitations General Appearance: Alert Throat/Mouth: Normal Inspection, Normal Lips, Normal Teeth, Normal Gums, Normal Oropharynx, Normal Voice, No Airway Compromise Head: Atraumatic, Normocephalic Neck: Normal Inspection, Supple, Non-Tender, Full Range of Motion Respiratory/Chest: No Respiratory Distress, Lungs Clear Cardiovascular: Normal Peripheral Pulses, Regular Rate, Rhythm GI/Abdominal Exam: Soft, Tender (tendernes sover the hypogastric region and L upper quad) (Female) Exam: Deferred Rectal (Female) Exam: Deferred Back Exam: Normal Inspection, Full Range of Motion Extremities: Normal Inspection, Normal Range of Motion, Non-Tender, Normal Capillary Refill, No Pedal Edema Neurological: Alert, Oriented Psychiatric: Normal Affect, Normal Mood Skin Exam: Warm, Dry, Intact Course - Re-Assessments/Exams Free Text/Narrative Re-Assessment/Exam: 08/04/21 19:02 Care taken over by MD gonzalez at shift change Departure - Departure Disposition: Home, Self-Care 01 Clinical Impression: Gastroenteritis Leukocytosis Qualifiers: Leukocytosis type: bandemia Qualified Code(s): D72.825 - Bandemia - Discharge Information Instructions: Nausea and Vomiting, Adult, [id number] Forms: ED Department Discharge Additional Instructions: Ciprofloxacin 500 mg twice daily for 7 days Eat small, frequent, meals Drink plenty of fluids If symptoms worsen, call/return to the ER Follow up with your primary care provider in 3-5 days. Sepsis Event Note (ED) - Evaluation Sepsis Screening Result: No Definite Risk <Susan Gonzalez - Last Filed: 08/04/21 22:10> Course - Vital Signs Last Recorded V/S: Last Vital Signs Temp 96.1 F L 08/04/21 16:59 Pulse 113 H 08/04/21 16:59 Resp 18 08/04/21 16:59 BP 141/81 H 08/04/21 16:59 Pulse Ox 99 08/04/21 16:59 - Orders/Labs/Meds Orders: Active Orders 24 hr Category Date Time Status Peripheral IV Care [RC] . DIRECTED Care 08/04/21 18:17 Active Ciprofloxacin in D5W [Cipro in D5W 400 MG/200 ML] 400 Med 08/04/21 22:04 Ordered mg Premix Bag 1 bag IV ONETIME Sodium Chloride 0.9% [Saline Flush] Med 08/04/21 18:17 Active 10 ml FLUSH ASDIRECTED PRN Peripheral IV Insertion Adult [OM.PC] Routine Oth 08/04/21 18:16 Ordered Medication Orders Ciprofloxacin/Dextrose 400 mg/ (Premix) 200 mls @ 200 mls/hr IV ONETIME ONE Stop: 08/04/21 23:03 Sodium Chloride (Sodium Chloride 0.9% 10 Ml Syringe) 10 ml FLUSH ASDIRECTED PRN PRN Reason: Keep Vein Open Last Admin: 08/04/21 20:51 Dose: 10 ml Documented by: KERRI Labs: Laboratory Tests 08/04/21 08/04/21 08/04/21 Range/Units 18:30 18:30 18:30 WBC 16.9 H (5.0-10.0) 10^3/uL RBC 5.27 (4.2-5.4) 10^6/uL Hgb 15.9 D (12.0-16.0) g/dL Hct 45.8 (37.0-47.0) % MCV 86.9 D (80-100) fL MCH 30.2 (27.0-34.0) pg MCHC 34.7 (33.0-35.0) g/dL Plt Count 308 D (150-450) 10^3/uL Neut % (Auto) 81.2 H (42.2-75.2) % Lymph % (Auto) 11.8 L (20.5-50.1) % [place] % (Auto) 5.7 (2-8) % Eos % (Auto) 1.1 (1.0-3.0) % Baso % (Auto) 0.2 (0.0-1.0) % Sodium 137 (136-145) mmol/L Potassium 4.5 (3.5-5.1) mmol/L Chloride 100 (98-107) mmol/L Carbon Dioxide 24 (21-32) mmol/L Anion Gap 17.5 H (7-13) mEq/L BUN 14 (7-18) mg/dL Creatinine 0.78 (0.55-1.02) mg/dL Est Cr Clr Drug Dosing 78.32 mL/min Estimated GFR (MDRD) > 60 BUN/Creatinine Ratio 17.9 (No establ ref range) Glucose 229 H (70-99) mg/dL Lactic Acid 1.9 (0.4-2.0) mmol/L Calcium 9.6 (8.5-10.1) mg/dL Magnesium 2.0 (1.8-2.4) mg/dL Total Bilirubin 0.8 (0.2-1.0) mg/dL AST 56 H (15-37) U/L ALT 95 H (14-59) U/L Alkaline Phosphatase 85 (46-116) U/L Total Protein 8.5 H (6.4-8.2) g/dL Albumin 4.5 (3.4-5.0) g/dL Globulin 4.0 Albumin/Globulin Ratio 1.1 Amylase 26 (25-115) U/L Lipase 93 (73-393) U/L Urine Color (YELLOW) Urine Appearance (CLEAR) Urine pH (5.0-9.0) Ur Specific [place] (1.005-1.030) Urine Protein (NEGATIVE) Urine Glucose (UA) (NEGATIVE) Urine Ketones (NEGATIVE) Urine Occult Blood (NEGATIVE) Urine Nitrite (NEGATIVE) Urine Bilirubin (NEGATIVE) Urine Urobilinogen (0.2-1.0) mg/dL Ur Leukocyte Esterase (NEGATIVE) 08/04/21 Range/Units 20:28 WBC (5.0-10.0) 10^3/uL RBC (4.2-5.4) 10^6/uL Hgb (12.0-16.0) g/dL Hct (37.0-47.0) % MCV (80-100) fL MCH (27.0-34.0) pg MCHC (33.0-35.0) g/dL Plt Count (150-450) 10^3/uL Neut % (Auto) (42.2-75.2) % Lymph % (Auto) (20.5-50.1) % [place] % (Auto) (2-8) % Eos % (Auto) (1.0-3.0) % Baso % (Auto) (0.0-1.0) % Sodium (136-145) mmol/L Potassium (3.5-5.1) mmol/L Chloride (98-107) mmol/L Carbon Dioxide (21-32) mmol/L Anion Gap (7-13) mEq/L BUN (7-18) mg/dL Creatinine (0.55-1.02) mg/dL Est Cr Clr Drug Dosing mL/min Estimated GFR (MDRD) BUN/Creatinine Ratio (No establ ref range) Glucose (70-99) mg/dL Lactic Acid (0.4-2.0) mmol/L Calcium (8.5-10.1) mg/dL Magnesium (1.8-2.4) mg/dL Total Bilirubin (0.2-1.0) mg/dL AST (15-37) U/L ALT (14-59) U/L Alkaline Phosphatase (46-116) U/L Total Protein (6.4-8.2) g/dL Albumin (3.4-5.0) g/dL Globulin Albumin/Globulin Ratio Amylase (25-115) U/L Lipase (73-393) U/L Urine Color Yellow (YELLOW) Urine Appearance Clear (CLEAR) Urine pH 5.5 (5.0-9.0) Ur Specific [place] >= 1.030 (1.005-1.030) Urine Protein Negative (NEGATIVE) Urine Glucose (UA) >=1000 H (NEGATIVE) Urine Ketones 40 H (NEGATIVE) Urine Occult Blood Negative (NEGATIVE) Urine Nitrite Negative (NEGATIVE) Urine Bilirubin Negative (NEGATIVE) Urine Urobilinogen 0.2 (0.2-1.0) mg/dL Ur Leukocyte Esterase Negative (NEGATIVE) Meds: Medications Generic Name Dose Route Start Last Admin Trade Name Freq PRN Reason Stop Dose Admin Ciprofloxacin/Dextrose 400 mg/ 200 mls @ 200 mls/hr 08/04/21 22:04 Premix IV 08/04/21 23:03 ONETIME ONE Sodium Chloride 10 ml 08/04/21 18:17 08/04/21 20:51 Sodium Chloride 0.9% 10 Ml Syringe FLUSH 10 ml ASDIRECTED PRN Administration Keep Vein Open Discontinued Medications Generic Name Dose Route Start Last Admin Trade Name Freq PRN Reason Stop Dose Admin Hydromorphone HCl 0.5 mg 08/04/21 18:19 08/04/21 18:42 Hydromorphone 0.5 Mg/0.5 Ml Syringe IVPUSH 08/04/21 18:20 0.5 mg ONETIME ONE Administration Iopamidol 100 ml 08/04/21 20:31 08/04/21 20:56 Iopamidol 612 Mg/Ml 100 Ml Bottle IVPUSH 08/04/21 20:32 100 ml ONETIME ONE Administration Ondansetron HCl 4 mg 08/04/21 18:19 08/04/21 18:40 Ondansetron 4 Mg/2 Ml Sdv IVPUSH 08/04/21 18:20 4 mg ONETIME ONE Administration - Radiology Interpretation Free Text/Narrative:: CT abdomen/pelvis with contrast: no acute findings. - Re-Assessments/Exams Free Text/Narrative Re-Assessment/Exam: Reviewed CT findings with the pt. She is feeling ready to go home. IV cipro given in ER. Rx for oral cipro given to pt to fill tomorrow. Pt verbalized understanding. 08/04/21 22:06 Departure - Departure Time of Disposition: 22:07 Condition: Fair - Discharge Information *PRESCRIPTION DRUG MONITORING PROGRAM REVIEWED*: Not Applicable *COPY OF PRESCRIPTION DRUG MONITORING REPORT IN PATIENT WILBER: Not Applicable Sepsis Event Note (ED) - Focused Exam Vital Signs: Vital Signs Temp Pulse Resp BP Pulse Ox 08/04/21 16:59 96.1 F L 113 H 18 141/81 H 99 - My Orders Last 24 Hours: My Active Orders 08/04/21 22:04 Ciprofloxacin in D5W [Cipro in D5W 400 MG/200 ML] 400 mg Premix Bag 1 bag IV ONETIME - Assessment/Plan Last 24 Hours: My Active Orders 08/04/21 22:04 Ciprofloxacin in D5W [Cipro in D5W 400 MG/200 ML] 400 mg Premix Bag 1 bag IV ONETIME
[2021-08-04 18:55] LABS: ANION GAP 17.5 mEq/L (7-13); CHLORIDE,CL 100 mmol/L (98-107); SODIUM,NA 137 mmol/L (136-145)
[2021-08-04] MEDS ORDERED: Iopamidol 612 MG/ML 100 ML Bottle IVPUSH ONE (20:31)
--- NOTE | 2021-08-04 21:55 | CT ---
PROCEDURE INFORMATION: Exam: CT Abdomen And Pelvis With Contrast Exam date and time: 08/04/2021 8:47 PM Age: 55 years old Clinical indication: Other: Pain, , wbc 16,900; Additional info: Vomiting, previous bowel obstruction TECHNIQUE: Imaging protocol: Computed tomography of the abdomen and pelvis with contrast. Radiation optimization: All CT scans at this facility use at least one of these dose optimization techniques: automated exposure control; mA and/or kV adjustment per patient size (includes targeted exams where dose is matched to clinical indication); or iterative reconstruction. Contrast material: [id number]; Contrast volume: 100 ml; Contrast route: INTRAVENOUS (IV); COMPARISON: CT Abdomen Pelvis w Cont 06/20/2021 11:51 PM FINDINGS: Lungs: 4 mm nodule at the medial right lung base.For patients at low risk (minimal or absent history of smoking and of other known risk factors), no routine follow-up is indicated. For patients at high risk (history of smoking or of other known risk factors), consider optional CT Chest at 12 months. (Reference: [facility]) Liver: Normal. No mass. Gallbladder and bile ducts: The patient is status post cholecystectomy. Pancreas: Normal. No ductal dilation. Spleen: Normal. No splenomegaly. Adrenal glands: Normal. No mass. Kidneys and ureters: Normal. No hydronephrosis. Stomach and bowel: Unremarkable. No obstruction. No mucosal thickening. Appendix: No evidence of appendicitis. Intraperitoneal space: Unremarkable. No free air. No significant fluid collection. Vasculature: Unremarkable. No abdominal aortic aneurysm. Lymph nodes: Unremarkable. No enlarged lymph nodes. Urinary bladder: Unremarkable as visualized. Reproductive: The patient is status post hysterectomy. Bones/joints: Unremarkable. No acute fracture. Soft tissues: Unremarkable. IMPRESSION: No acute abnormality. REFERENCES: [facility] Ayala et al. Guidelines for Management of Incidental Pulmonary Nodules Detected on CT Images: From the Fleischner Society 2017. Radiology. 2017;284(1):228-243.
[2021-08-04] MEDS ORDERED: Ciprofloxacin in D5W 400 MG in Premix Bag 1 BAG IV ONE ×2 (22:04)
[2021-08-04] MEDS ORDERED: Ondansetron 4 MG/2 ML SDV ONE (23:16)
[2021-08-04 23:51] VITALS: BP 131/77; PULSE 74
== END 2021-08-04 23:50 | disposition home or self-care (01) ==
LOC: DL.ED 15:55
DX: K52.9 Noninfective gastroenteritis and colitis, unspecified (principal); D72.829 Elevated white blood cell count, unspecified; E78.00 Pure hypercholesterolemia, unspecified; I10 Essential (primary) hypertension; E11.9 Type 2 diabetes mellitus without complications; E66.9 Obesity, unspecified; Z68.28 Body mass index [BMI] 28.0-28.9, adult; Z79.82 Long term (current) use of aspirin; Z88.8 Allergy status to other drugs, medicaments and biological substances; Z79.899 Other long term (current) drug therapy; Z79.4 Long term (current) use of insulin
CPT/HCPCS: 36415; 74177; 80053; 81003; 82150; 83605; 83690; 83735; 85025; 96365; 96375; 96376; 99284-25; J0744; J1170; J2405; Q9967

== ENCOUNTER 2024-08-31 14:53 | Emergency (ER) | payer BC ==
[2024-08-31 15:21] VITALS: BP 177/84; PULSE 85
[2024-08-31 15:55] LABS: APPEARANCE,URINE CLEAR (CLEAR); BILIRUBIN,URINE NEGATIVE (NEGATIVE); COLOR,URINE YELLOW (YELLOW); GLUCOSE,URINE 500 (NEGATIVE); KETONES,URINE NEGATIVE (NEGATIVE); LEUKOCYTE ESTERASE,URINE NEGATIVE (NEGATIVE); NITRITE,URINE NEGATIVE (NEGATIVE); OCCULT BLOOD,URINE NEGATIVE (NEGATIVE); PH,URINE 5.5 (5.0-9.0); PROTEIN,URINE NEGATIVE (NEGATIVE); UROBILINOGEN,URINE 0.2 mg/dL (0.2-1.0)
== END 2024-08-31 16:05 | disposition home or self-care (01) ==
LOC: DL.ED 14:53
DX: R07.81 Pleurodynia (principal); I10 Essential (primary) hypertension; E78.00 Pure hypercholesterolemia, unspecified; K21.9 Gastro-esophageal reflux disease without esophagitis; E11.9 Type 2 diabetes mellitus without complications; E66.9 Obesity, unspecified; Z68.28 Body mass index [BMI] 28.0-28.9, adult; Z90.49 Acquired absence of other specified parts of digestive tract; Z90.710 Acquired absence of both cervix and uterus; Z79.82 Long term (current) use of aspirin; Z79.4 Long term (current) use of insulin; Z79.899 Other long term (current) drug therapy; Z91.048 Other nonmedicinal substance allergy status
CPT/HCPCS: 81003; 99283; 99284

== ENCOUNTER 2024-09-01 09:52 | Observation (INO) | payer BC ==
[2024-09-01 10:00] LABS: BASOPHILS PERCENT AUTO 0.9 % (0.0-1.0); EOSINOPHILS PERCENT AUTO 0.4 % (1.0-3.0); HEMATOCRIT 43.1 % (37.0-47.0); HEMOGLOBIN 14.3 g/dL (12.0-16.0); LYMPHOCYTES PERCENT AUTO 20.2 % (20.5-50.1); MEAN CORPUSCULAR HEMOGLOBIN 29.6 pg (27.0-34.0); MEAN CORPUSCULAR HGB CONC 33.2 g/dL (33.0-35.0); MEAN CORPUSCULAR VOLUME 89.2 fL (80-100); MONOCYTES PERCENT AUTO 5.9 % (2-8); NEUTROPHILS PERCENT AUTO 72.6 % (42.2-75.2); PLATELET COUNT,PLT 267 10^3/uL (150-450); RED BLOOD CELL COUNT 4.83 10^6/uL (4.2-5.4); WHITE BLOOD CELL COUNT,WBC 8.1 10^3/uL (5.0-10.0)
[2024-09-01] MEDS: Ondansetron 4 MG/2 ML SDV IVPUSH ONE (10:00)
[2024-09-01 10:17] LABS: PROTHROMBIN TIME 10.8 SEC (9.0-12.0)
[2024-09-01 10:20] LABS: A/G RATIO 1.2; ALANINE AMINOTRANSFERASE,ALT 80 U/L (14-59); ALBUMIN 4.3 g/dL (3.4-5.0); ALKALINE PHOSPHATASE 70 U/L (46-116); ANION GAP 16.6 mEq/L (7-13); ASPARTATE AMNIOTRANSFERASE,AST 56 U/L (15-37); BILIRUBIN TOTAL 0.6 mg/dL (0.2-1.0); BLOOD UREA NITROGEN,BUN 12 mg/dL (7-18); BUN/CREATININE RATIO 14.1 (No establ ref range); CALCIUM 10.2 mg/dL (8.5-10.1); CARBON DIOXIDE,CO2 26 mmol/L (21-32); CHLORIDE,CL 101 mmol/L (98-107); CREATININE 0.85 mg/dL (0.55-1.02); GLUCOSE RANDOM 200 mg/dL (70-99); MAGNESIUM 1.8 mg/dL (1.8-2.4); POTASSIUM,K 4.6 mmol/L (3.5-5.1); PROTEIN TOTAL,TP 7.9 g/dL (6.4-8.2); SODIUM,NA 139 mmol/L (136-145)
[2024-09-01 10:22] LABS: ESTIMATED GFR 79 mL/min (>=60)
[2024-09-01] MEDS: Ondansetron 4 MG/2 ML SDV ONE (10:38)
[2024-09-01] MEDS: Meclizine 12.5 MG Tab PO ONE (10:38)
[2024-09-01] MEDS: Sodium Chloride 0.9% 500 ML IV ONE (11:01)
[2024-09-01] MEDS ORDERED: Glucagon,Human Recombinant 1 MG Vial IM PRN (13:26)
[2024-09-01] MEDS ORDERED: 50% Dextrose in Water 50 ML Syringe IVPUSH PRN (13:26)
[2024-09-01] MEDS ORDERED: Melatonin 3 MG Tab PO PRN (13:28)
[2024-09-01] MEDS: cefTRIAXone 2 GM Vial IVPUSH SCH (13:42)
[2024-09-01] MEDS: Acetaminophen 325 MG Tab PO PRN (15:46)
[2024-09-01] MEDS: Insulin Lispro 100 Units/ML 3 ML Vial SUBCUT SCH (17:01)
[2024-09-01] MEDS: metFORMIN 500 MG Tab PO SCH (18:11)
[2024-09-01] MEDS: Acetaminophen/HYDROcodone 325-5 MG Tab PO PRN (18:11)
[2024-09-01] MEDS: Acetaminophen/Butalbital/Caffeine 325-50-40 MG Tab PO PRN (19:57)
[2024-09-01] MEDS: Amitriptyline 10 MG Tab PO SCH (20:23)
[2024-09-01] MEDS: atorvaSTATin 20 MG Tab PO SCH (20:24)
[2024-09-02] MEDS: Ramipril 5 MG Cap PO SCH (08:58)
[2024-09-02] MEDS: Aspirin 81 MG Tab.EC PO SCH (09:00)
[2024-09-02] MEDS: Empagliflozin 25 MG Tab PO SCH (09:00)
[2024-09-02] MEDS: Enoxaparin 40 MG/0.4 ML Syringe SUBCUT SCH (09:02)
[2024-09-02] MEDS: Meclizine 12.5 MG Tab PO PRN (10:17)
[2024-09-03] MEDS: Ondansetron 4 MG/2 ML SDV IVPUSH PRN (10:49)
[2024-09-03] MEDS: Docusate Sodium 100 MG Cap PO PRN (20:57)
[2024-09-04 06:47] LABS: A/G RATIO 1.1; ALBUMIN 3.9 g/dL (3.4-5.0); ANION GAP 10.7 mEq/L (7-13); BILIRUBIN TOTAL 0.6 mg/dL (0.2-1.0); CALCIUM 9.9 mg/dL (8.5-10.1); CREATININE 0.94 mg/dL (0.55-1.02); EST CRCL DRUG DOSING (CG) 62.66 mL/min; POTASSIUM,K 4.7 mmol/L (3.5-5.1); PROTEIN TOTAL,TP 7.4 g/dL (6.4-8.2)
[2024-09-04] MEDS: Bisacodyl 5 MG Tab PO PRN (12:53)
[2024-09-04 14:06] VITALS: BP 126/66; PULSE 82
[2024-09-04] MEDS: FLU (Fluarix Triv) TS24-25(6MOS UP)/PF 45 MCG/0.5 ML Syringe IM ONE (14:16)
== END 2024-09-04 14:30 | disposition home or self-care (01) ==
LOC: DL.ED 09:52 → DL.MS 12:04 → DL.ED 12:16
PROVIDERS: ADMIT Internal Medicine; ATTEND Internal Medicine
DX: H66.93 Otitis media, unspecified, bilateral (principal); H83.09 Labyrinthitis, unspecified ear; R42 Dizziness and giddiness; E66.9 Obesity, unspecified; R26.81 Unsteadiness on feet; E11.65 Type 2 diabetes mellitus with hyperglycemia; R74.01 Elevation of levels of liver transaminase levels; I10 Essential (primary) hypertension; E78.5 Hyperlipidemia, unspecified; Z79.82 Long term (current) use of aspirin; Z79.4 Long term (current) use of insulin; Z79.899 Other long term (current) drug therapy; Z79.84 Long term (current) use of oral hypoglycemic drugs; Z88.8 Allergy status to other drugs, medicaments and biological substances; Z68.30 Body mass index [BMI] 30.0-30.9, adult
CPT/HCPCS: 36415; 70450; 70551; 80053; 82947; 83735; 84484; 85025; 85610; 90656; 93005; 93010; 96361; 96372; 96374; 96375; 96376; 97112-GP; 97161-GP; 97530-GP; 99222; 99232; 99238; 99284; 99285-25; A9270-GY; G0008; G0378; J0696; J1650; J1815-GY; J2405; J7040

== ENCOUNTER 2024-09-06 18:47 | Emergency (ER) | payer BC ==
[2024-09-06 19:09] VITALS: BP 137/66; PULSE 79
[2024-09-06] MEDS: Nystatin Susp 100,000 Unit/ML 5 ML UD Cup PO ONE (20:42)
[2024-09-06] MEDS: Fluconazole 100 MG Tab PO ONE (20:42)
== END 2024-09-06 20:48 | disposition home or self-care (01) ==
LOC: DL.ED 18:47
DX: B37.0 Candidal stomatitis (principal); I10 Essential (primary) hypertension; E11.9 Type 2 diabetes mellitus without complications; E66.9 Obesity, unspecified; M19.90 Unspecified osteoarthritis, unspecified site; E78.00 Pure hypercholesterolemia, unspecified; Z79.82 Long term (current) use of aspirin; Z79.4 Long term (current) use of insulin; Z79.899 Other long term (current) drug therapy; Z88.8 Allergy status to other drugs, medicaments and biological substances
CPT/HCPCS: 87081; 87430; 99282; 99284; A9270-GY; U0002

== ENCOUNTER 2025-04-06 06:21 | Day surgery (SDC) | payer BC ==
[~2025-04-06 06:21] MED LIST changes: -Dextrose 5%-0.45% NaCl 1,000 ML IV SCH; +Propofol 200 MG/20 ML SDV ONE; -Sodium Chloride 0.9% 10 ML Syringe FLUSH PRN
[2025-04-06] MEDS ORDERED: Lactated Ringers 1,000 ML IV ONE (06:22)
[2025-04-06] MEDS ORDERED: Lidocaine 2% 20 ML MDV NERVRT ONE (06:22)
[2025-04-06] MEDS ORDERED: Propofol 200 MG/20 ML SDV IV ONE (06:22)
[2025-04-06] MEDS: Lactated Ringers 1,000 ML IV SCH (06:52)
[2025-04-06 09:25] VITALS: BP 138/63; PULSE 58
== END 2025-04-06 09:20 | disposition home or self-care (01) ==
LOC: DL.ENDO 06:21
PROVIDERS: ATTEND Internal Medicine Gastroenterology
DX: K29.50 Unspecified chronic gastritis without bleeding (principal); K31.7 Polyp of stomach and duodenum; E11.9 Type 2 diabetes mellitus without complications; I10 Essential (primary) hypertension; E66.9 Obesity, unspecified; Z68.28 Body mass index [BMI] 28.0-28.9, adult; Z79.84 Long term (current) use of oral hypoglycemic drugs; Z79.899 Other long term (current) drug therapy
CPT/HCPCS: 43239; J2003; J2704; J7120; 00731